=== PATIENT | female | born 1965 | race Caucasian/White ===

== ENCOUNTER 2016-10-07 11:20 | Outpatient (CLI) | payer MEDICAID | END 2016-10-07 11:21 | disposition home or self-care (01) | DX: R10.11 Right upper quadrant pain (principal) ==

== ENCOUNTER 2016-10-08 14:34 | Outpatient (CLI) | payer MEDICAID | END 2016-10-08 14:35 | disposition home or self-care (01) | DX: R10.11 Right upper quadrant pain (principal) ==

== ENCOUNTER 2016-10-22 07:51 | Outpatient (CLI) | payer MEDICAID ==
[2016-10-22] MEDS ORDERED: IOPAMIDOL-300 100 ML VIAL IVP ONE (09:38)
== END 2016-10-22 07:52 | disposition home or self-care (01) ==
DX: M79.89 Other specified soft tissue disorders (principal)

== ENCOUNTER 2016-10-22 07:53 | Outpatient (CLI) | payer MEDICAID | END 2016-10-22 07:54 | disposition home or self-care (01) | DX: R06.02 Shortness of breath (principal); M79.89 Other specified soft tissue disorders | CPT/HCPCS: 71275; 93971; Q9967 ==

== ENCOUNTER 2017-01-30 15:51 | Emergency (ER) | payer MEDICAID ==
[2017-01-30 15:57] VITALS: BP 142/99
--- NOTE | 2017-01-30 16:20 | ED Physician Documentation ---
PD HPI BACK PAIN - Stated complaint Stated Complaint: MID BACK PX - Chief complaint Chief Complaint: Back Pain - History obtained from History obtained from: Patient - History of Present Illness Timing - onset: Today Timing - duration: Hours (1) Timing - details: Abrupt onset Pain level max: 9 Pain level now: 9 Location: Mid, Lower Quality: Pain, Spasm, Similar to prior episodes Associated symptoms: Numbness (L upper thigh), Incontinent of urine (stress incontinence). 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 Also brought with her a copy of her MRI from 2013. Does have some numbness to the left upper leg. 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 - Present Medications Home Medications: Ambulatory Orders Medication Instructions Recorded Confirmed Meloxicam [Mobic] 7.5 mg PO BID PRN #20 tablet 01/30/17 Prednisone 40 mg PO DAILY #10 tablet 01/30/17 - Allergies Allergies/Adverse Reactions: Allergies Allergy/AdvReac Type Severity Reaction Status Date / Time codeine Allergy Itching Verified 05/29/16 19:47 Penicillins AdvReac Nausea Verified 05/29/16 19:47 - Social History Does the pt smoke?: No Smoking Status: Former smoker Does the pt drink ETOH?: No Does the pt have substance abuse?: No - Immunizations Immunizations are current?: Yes PD ED PE NORMAL - Vitals Vital signs reviewed: Yes - General General: Alert and oriented X 3, No acute distress - HEENT HEENT: Moist mucous membranes - Neck Neck: Supple, no meningeal sign - Cardiac Cardiac: RRR, Strong equal pulses - Respiratory Respiratory: No respiratory distress, Clear bilaterally - Abdomen Abdomen: Soft, Non tender - Back Back: No spinal TTP, Other (Paraspinal muscle spasm present T8 and T9. No midline Tenderness. No step-off or deformity.) - Derm Derm: Warm and dry, No rash - Extremities Extremities: No deformity, No tenderness to palpate, Other (normal bilateral lower extremity patellar and ankle jerk reflexes. Normal great toe extension bilaterally) - Neuro Neuro: Alert and oriented X 3, No motor deficit, Other (mild decreased sensation L upper thigh (L3 dermatome)) - Psych Psych: Normal mood, Normal affect Results - Vitals Vitals: Vital Signs - 24 hr 01/30/17 15:54 Temperature 36.3 C L Heart Rate 88 Respiratory 16 Rate Blood Pressure 142/99 H O2 Saturation 97 Oxygen O2 Source Room air PD MEDICAL DECISION MAKING - ED course Complexity details: reviewed old records, re-evaluated patient, considered differential (no cauda equina, no spinal epidural abscess, no fracture, no aortic dissection or evidence of aneursym rupture), d/w patient ED course: Patient is a 51-year-old female who presents to the emergency department with acute on chronic back pain. Appears to have new radiculopathy, will place on steroids here for this. Patient states that she does not like medications and does not want to take them at home. I discussed with her further that I think she would benefit from medications to decrease the inflammation in her spine. Her MRI from 2013 was reviewed and I recommend that she follow-up with her doctor and a spine surgeon for further evaluation. She would likely benefit from a new MRI as this was approximately 3 years ago and they did not look at her lumbar spine. She has no new numbness or tingling. No evidence of cauda equina or epidural abscess. Ambulating with a steady gait. Normal reflexes bilateral lower extremities. Patient counseled regarding signs and symptoms for which I believe and urgent re-evaluation would be necessary. Patient with good understanding of and agreement to plan and is comfortable going home at this time This document was made in part using voice recognition software. While efforts are made to proofread this document, sound alike and grammatical errors may occur. Departure - Departure Disposition: 01 Home, Self Care Clinical Impression: Radiculopathy Qualifiers: Spinal region: lumbosacral Qualified Code(s): M54.17 - Radiculopathy, lumbosacral region Sciatica Qualifiers: Laterality: left Qualified Code(s): M54.32 - Sciatica, left side Condition: Good Instructions: ED Sciatica Follow-Up: BISHOP ROOT [Primary Care Provider] - Within 1 week Prescriptions: Meloxicam [Mobic] 7.5 mg PO BID PRN #20 tablet PRN Reason: pain Prednisone 40 mg PO DAILY #10 tablet Comments: Return if you worsen. This should improve over the next 24 hours. Return if you have loss of bowel or bladder control. You should also be referred to a spine surgeon for further evaluation. You will likely need another MRI of your T and L spines ordered by your doctor. Discharge Date/Time: 01/30/17 16:51
[2017-01-30] MEDS ORDERED: DEXAMETHASONE 10 MG/ML VIAL PO STA (16:37)
[2017-01-30] MEDS ORDERED: DEXAMETHASONE 10 MG/ML VIAL ONE (16:40)
[2017-01-30] MEDS ORDERED: CHERRY SYRUP 10 ML UDC PO ONE (16:40)
== END 2017-01-30 16:51 | disposition home or self-care (01) ==
LOC: ED 15:51
DX: M54.17 Radiculopathy, lumbosacral region (principal); M54.32 Sciatica, left side; Z86.73 Personal history of transient ischemic attack (TIA), and cerebral infarction without residual deficits; Z87.891 Personal history of nicotine dependence
CPT/HCPCS: 99283; A9270

== ENCOUNTER 2020-09-03 17:34 | Emergency (ER) | payer MEDICAID ==
[2020-09-03] MEDS ORDERED: OLANZapine 10 MG VIAL IM STA (17:57)
[2020-09-03 18:06] LABS: BASOPHILS % (AUTO) 0.4 %; EOSINOPHILS # (AUTO) 0.1 10^3/uL (0.0-0.7); EOSINOPHILS % (AUTO) 2.1 %; HCT - HEMATOCRIT 39.1 % (37.0-47.0); HGB - HEMOGLOBIN 12.7 g/dL (12.0-16.0); LYMPHOCYTES # (AUTO) 3.7 10^3/uL (1.5-3.5); LYMPHOCYTES % (AUTO) 55.8 %; MEAN CORPUSCULAR HGB CONC 32.5 g/dL (32.0-36.0); MEAN CORPUSCULAR VOLUME 86.1 fL (81.0-99.0); MEAN PLATELET VOLUME 9.6 fL (7.9-10.8); MONOCYTES # (AUTO) 0.4 10^3/uL (0.0-1.0); NEUTROPHILS # (AUTO) 2.4 10^3/uL (1.5-6.6); NEUTROPHILS % (AUTO) 35.4 %; PLT - PLATELET COUNT 257 10^3/uL (130-450); RED BLOOD COUNT 4.54 10^6/uL (4.20-5.40); RED CELL DISTRIBUTION WIDTH 13.2 % (12.0-15.0); WHITE BLOOD COUNT 6.7 x10^3/uL (4.8-10.8)
--- NOTE | 2020-09-03 18:08 | ED Physician Documentation ---
PD HPI MHE - Stated complaint Stated Complaint: MHE - Chief complaint Chief Complaint: MHE - History obtained from History obtained from: Patient, Police - History of Present Illness Primary symptom: Suicidal ideation, Psychosis Timing - onset: Today Pain level max: 0 Pain level now: 0 - Additional information Additional information: Patient is a 55-year-old female who is brought in by police today. They state that she was throwing items out of her trailer and was threatening to kill herself with a knife. The police brought her here on an involuntary hold. Patient is uncooperative here and refuses to talk to any emergency department staff. 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 - Present Medications Home Medications: Ambulatory Orders Medication Instructions Recorded Confirmed Meloxicam [Mobic] 7.5 mg PO BID PRN #20 tablet 01/30/17 predniSONE [Prednisone] 40 mg PO DAILY #10 tablet 01/30/17 - Allergies Allergies/Adverse Reactions: Allergies Allergy/AdvReac Type Severity Reaction Status Date / Time codeine Allergy Itching Verified 05/29/16 19:47 Penicillins AdvReac Nausea Verified 05/29/16 19:47 - Social History Does the pt smoke?: No Smoking Status: Former smoker Does the pt drink ETOH?: No Does the pt have substance abuse?: No - Immunizations Immunizations are current?: Yes PD ED PE NORMAL - Vitals Vital signs reviewed: Yes - General General: No acute distress, Well developed/nourished, Other (alert, in no distress) - HEENT HEENT: PERRL, Moist mucous membranes - Neck Neck: Supple, no meningeal sign - Cardiac Cardiac: RRR, Strong equal pulses - Respiratory Respiratory: No respiratory distress, Clear bilaterally - Abdomen Abdomen: Soft, Non tender, Non distended - Derm Derm: Warm and dry - Extremities Extremities: No edema - Neuro Neuro: Other (alert) Results - Vitals Vitals: Vital Signs - 24 hr 09/03/20 17:40 Temperature 36.7 C Heart Rate 90 Respiratory 18 Rate Blood Pressure 150/99 H O2 Saturation 100 Oxygen O2 Source Room air - Labs Labs: Laboratory Tests 09/03/20 09/03/20 09/03/20 17:17 17:17 18:00 WBC 6.7 RBC 4.54 Hgb 12.7 Hct 39.1 MCV 86.1 MCH 28.0 MCHC 32.5 RDW 13.2 Plt Count 257 MPV 9.6 Neut # (Auto) 2.4 Lymph # (Auto) 3.7 H [place] # (Auto) 0.4 Eos # (Auto) 0.1 Baso # (Auto) 0.0 Absolute Nucleated RBC 0.00 Nucleated RBC % 0.0 Sodium Potassium Chloride Carbon Dioxide Anion Gap BUN Creatinine Estimated GFR (MDRD) Glucose Calcium Total Bilirubin AST ALT Alkaline Phosphatase Total Protein Albumin Globulin Albumin/Globulin Ratio Lipase TSH Urine Color YELLOW Urine Clarity CLEAR Urine pH 5.5 Ur Specific [place] <=1.005 Urine Protein NEGATIVE Urine Glucose (UA) NEGATIVE Urine Ketones NEGATIVE Urine Occult Blood TRACE-INTA Urine Nitrite NEGATIVE Urine Bilirubin NEGATIVE Urine Urobilinogen 0.2 (NORMAL) Ur Leukocyte Esterase NEGATIVE Ur Microscopic Review NOT INDICATED Urine Culture Comments NOT INDICATED Urine HCG, Qual NEGATIVE Nasal Adenovirus (PCR) Nasal B. parapertussis DNA (PCR) Nasal Coronavir 229E PCR Nasal Coronavir HKU1 PCR Nasal Coronavir NL63 PCR Nasal Coronavir OC43 PCR Nasal Enterovir/Rhinovir PCR Nasal Influenza B PCR Nasal Influenza A PCR Nasal Parainfluen 1 PCR Nasal Parainfluen 2 PCR Nasal Parainfluen 3 PCR Nasal Parainfluen 4 PCR Nasal RSV (PCR) Nasal B.pertussis DNA PCR Nasal C.pneumoniae (PCR) Hans[place] Human Metapneumo PCR Nasal M.pneumoniae (PCR) Nasal SARS-CoV-2 (PCR) Salicylates Urine Opiates Screen NEGATIVE Ur Oxycodone Screen NEGATIVE Urine Methadone Screen NEGATIVE Ur Propoxyphene Screen NEGATIVE Acetaminophen Ur Barbiturates Screen NEGATIVE Ur Tricyclics Screen NEGATIVE Ur Phencyclidine Scrn NEGATIVE Ur Amphetamine Screen NEGATIVE U Methamphetamines Scrn NEGATIVE U Benzodiazepines Scrn NEGATIVE Urine Cocaine Screen NEGATIVE U Cannabinoids Screen NEGATIVE Ethyl Alcohol 09/03/20 09/03/20 09/03/20 18:00 18:00 18:22 WBC RBC Hgb Hct MCV MCH MCHC RDW Plt Count MPV Neut # (Auto) Lymph # (Auto) [place] # (Auto) Eos # (Auto) Baso # (Auto) Absolute Nucleated RBC Nucleated RBC % Sodium 137 Potassium 3.7 Chloride 103 Carbon Dioxide 21 Anion Gap 13.0 BUN 17 Creatinine 0.9 Estimated GFR (MDRD) 65 L Glucose 106 H Calcium 9.1 Total Bilirubin 0.6 AST 28 ALT 16 Alkaline Phosphatase 67 Total Protein 8.1 Albumin 4.7 Globulin 3.4 Albumin/Globulin Ratio 1.4 Lipase 38 TSH 3.91 Urine Color Urine Clarity Urine pH Ur Specific [place] Urine Protein Urine Glucose (UA) Urine Ketones Urine Occult Blood Urine Nitrite Urine Bilirubin Urine Urobilinogen Ur Leukocyte Esterase Ur Microscopic Review Urine Culture Comments Urine HCG, Qual Nasal Adenovirus (PCR) NOT DETECTED Nasal B. parapertussis DNA (PCR) NOT DETECTED Nasal Coronavir 229E PCR NOT DETECTED Nasal Coronavir HKU1 PCR NOT DETECTED Nasal Coronavir NL63 PCR NOT DETECTED Nasal Coronavir OC43 PCR NOT DETECTED Nasal Enterovir/Rhinovir PCR NOT DETECTED Nasal Influenza B PCR NOT DETECTED Nasal Influenza A PCR NOT DETECTED Nasal Parainfluen 1 PCR NOT DETECTED Nasal Parainfluen 2 PCR NOT DETECTED Nasal Parainfluen 3 PCR NOT DETECTED Nasal Parainfluen 4 PCR NOT DETECTED Nasal RSV (PCR) NOT DETECTED Nasal B.pertussis DNA PCR NOT DETECTED Nasal C.pneumoniae (PCR) NOT DETECTED Hans[place] Human Metapneumo PCR NOT DETECTED Nasal M.pneumoniae (PCR) NOT DETECTED Nasal SARS-CoV-2 (PCR) NOT DETECTED Salicylates < 6.0 Urine Opiates Screen Ur Oxycodone Screen Urine Methadone Screen Ur Propoxyphene Screen Acetaminophen < 10 L Ur Barbiturates Screen Ur Tricyclics Screen Ur Phencyclidine Scrn Ur Amphetamine Screen U Methamphetamines Scrn U Benzodiazepines Scrn Urine Cocaine Screen U Cannabinoids Screen Ethyl Alcohol 220.0 PD MEDICAL DECISION MAKING - ED course Complexity details: reviewed results, re-evaluated patient, considered differential ED course: Patient brought in by police on an involuntary hold for reported psychosis and suicidal ideation. She refuses to speak to me in the emergency department. Patient's alcohol level is elevated and we will allow her to sober and be re- evaluated. If she continues to refuse to speak, she will likely need DCR evaluation and will likely need DCR evaluation either way. Patient signed out to the oncoming emergency department physician. This document was made in part using voice recognition software. While efforts are made to proofread this document, sound alike and grammatical errors may occur. Departure - Departure Clinical Impression: Suicidal ideation Alcohol intoxication Qualifiers: Complication of substance-induced condition: uncomplicated Qualified Code(s): F10.920 - Alcohol use, unspecified with intoxication, uncomplicated Psychosis Qualifiers: Psychosis type: unspecified psychosis type Qualified Code(s): F29 - Unspecified psychosis not due to a substance or known physiological condition Condition: Stable
[2020-09-03 18:15] LABS: MUDS CUTOFF CONCENTRATIONS CUTOFF CONC BELOW:
[2020-09-03 18:19] LABS: BILIRUBIN,URINE NEGATIVE (NEGATIVE); GLUCOSE, URINE (UA) NEGATIVE (NEGATIVE); KETONES,URINE (UA) NEGATIVE (NEGATIVE); LEUKOCYTE ESTERASE, URINE NEGATIVE (NEGATIVE); NITRITE,URINE NEGATIVE (NEGATIVE); OCCULT BLOOD,URINE TRACE-INTA (NEGATIVE); PH,URINE 5.5 PH (5.0-7.5); PROTEIN,URINE NEGATIVE (NEGATIVE); UROBILINOGEN,URINE 0.2 (NORMAL) E.U./dL (NORMAL)
[2020-09-03 18:21] LABS: CLARITY,URINE CLEAR (CLEAR); HCG UR QUAL NEGATIVE
[2020-09-03 18:21] LABS: ACETAMINOPHEN < 10 ug/mL (10-30); ALBUMIN 4.7 g/dL (3.2-5.5); ALBUMIN/GLOBULIN RATIO 1.4 (1.0-2.2); ALKALINE PHOSPHATASE 67 IU/L (42-121); ALT ALANINE AMINOTRANSFERASE 16 IU/L (10-60); AST ASPARTATE AMINOTRANSFERASE 28 IU/L (10-42); BILIRUBIN,TOTAL 0.6 mg/dL (0.2-1.0); BUN - BLOOD UREA NITROGEN 17 mg/dL (6-20); CALCIUM 9.1 mg/dL (8.5-10.3); CARBON DIOXIDE - CO2 21 mmol/L (21-32); CHLORIDE 103 mmol/L (101-111); CREATININE 0.9 mg/dL (0.4-1.0); GFR - MDRD 65 (>89); GLUCOSE 106 mg/dL (70-100); LIPASE 38 U/L (22-51); POTASSIUM 3.7 mmol/L (3.5-5.0); SALICYLATE < 6.0 mg/dL; SODIUM 137 mmol/L (135-145); TOTAL PROTEIN 8.1 g/dL (6.7-8.2)
[2020-09-03 18:40] LABS: AMPHETAMINE SCREEN,URINE NEGATIVE (NEGATIVE); BARBITURATE SCREEN,UR NEGATIVE (NEGATIVE); BENZODIAZEPINES SCREEN, URINE NEGATIVE (NEGATIVE); COCAINE SCREEN URINE NEGATIVE (NEGATIVE); METHADONE SCREEN, URINE NEGATIVE (NEGATIVE); METHAMPHETAMINES SCREEN, URINE NEGATIVE (NEGATIVE); OPIATE SCREEN, URINE NEGATIVE (NEGATIVE); OXYCODONE SCREEN, URINE NEGATIVE (NEGATIVE); PROPOXYPHENE SCREEN, URINE NEGATIVE (NEGATIVE); THC CANNABINOID SCREEN, URINE NEGATIVE (NEGATIVE); TRICYCLIC ANTIDEPRESSANT,URINE NEGATIVE (NEGATIVE)
[2020-09-03 19:35] LABS: B. PARAPERTUSSIS- RESP PCR PAN NOT DETECTED; B. PERTUSSIS- RESP PCR PANEL NOT DETECTED; C. PNEUMONIAE- RESP PCR PANEL NOT DETECTED; CORONAVIRUS 229E-RESP PCR NOT DETECTED; CORONAVIRUS HKU1-RESP PCR NOT DETECTED; CORONAVIRUS NL63-RESP PCR NOT DETECTED; CORONAVIRUS OC43-RESP PCR NOT DETECTED; HUMAN METAPNEUMOVIRUS NOT DETECTED; INFLUENZA A- RESP PCR PANEL NOT DETECTED; INFLUENZA B - RESP PCR PANEL NOT DETECTED; M. PNEUMONIAE- RESP PCR PANEL NOT DETECTED; PARAINFLUENZA VIRUS 1 NOT DETECTED; PARAINFLUENZA VIRUS 2 NOT DETECTED; PARAINFLUENZA VIRUS 3 NOT DETECTED; PARAINFLUENZA VIRUS 4 NOT DETECTED; RHINOVIRUS/ENTEROVIRUS NOT DETECTED; RSV- RESP PCR PANEL NOT DETECTED; SARS-CoV-2 -RESP PCR PANEL NOT DETECTED
--- NOTE | 2020-09-04 07:39 | ED Physician Documentation ---
ED Addendum - Addendum Addendum: 09/04/20 07:38 55-year-old female presented to the emergency department intoxicated last night unwilling to speak to anyone and she has slept through the night after getting some Zyprexa and she has had a second blood draw indicating her blood alcohol level is less than 55. Social work has been consulted in the case if they are unable to make adequate communication with the patient the recommendation is to call the DCR.
[2020-09-04 10:07] VITALS: BP 169/102
--- NOTE | 2020-09-04 10:26 | ED Physician Documentation ---
ED Addendum - Addendum Addendum: 09/04/20 10:19 Social work has talked with the patient and assessed her. The patient denies any suicidal ideation at this time. She denies any regular alcohol use. She states she does have history of some depression and had been feeling upset about social stresses recently. She does not remember expressing any suicidality while intoxicated last night. She denies any suicidal ideation now. She did complain of her ears being bothered. She wears hearing aids. I looked at her ears and there is little bit of ear canal irritation looks potentially yeastlike. The eardrums are good. She is otherwise awake and conversant. No tremoring or nausea. The patient will be discharged with counseling follow-up as arranged by social work with an appointment made. Disposition the patient discharged home in stable condition Diagnoses: 1. Alcohol intoxication 2. Depression 3. Otitis externa 4. Stress reaction
== END 2020-09-04 11:08 | disposition home or self-care (01) ==
LOC: EDUNIT# → ED 17:34
DX: F32.9 Major depressive disorder, single episode, unspecified (principal); R45.851 Suicidal ideations; F10.920 Alcohol use, unspecified with intoxication, uncomplicated; F43.9 Reaction to severe stress, unspecified; H60.90 Unspecified otitis externa, unspecified ear; Z97.4 Presence of external hearing-aid; Z87.891 Personal history of nicotine dependence; Z20.828 Contact with and (suspected) exposure to other viral communicable diseases
CPT/HCPCS: 0202U; 36415; 80053; 80306; 80307; 80320; 80329; 81003; 81025; 83690; 84443; 85025; 96372; 99281; 99283; 81001; 87086

== ENCOUNTER 2021-07-07 18:07 | Emergency (ER) | payer MEDICAID ==
[2021-07-07] MEDS ORDERED: ACETAMINOPHEN 325 MG TABLET PO STA (19:26)
[2021-07-07] MEDS: MELOXICAM 7.5 MG TABLET PO STA ×2 (19:29→19:33)
--- NOTE | 2021-07-07 19:39 | ED Physician Documentation ---
PD HPI UPPER EXT INJURY - Stated complaint Stated Complaint: L ARM INJURY - Chief complaint Chief Complaint: Trauma Ext - History obtained from History obtained from: Patient - History of Present Illness Location: Left, Elbow Type of injury: Fall Where injury occurred: Street Timing - details: Abrupt onset Pain level max: 10 Pain level now: 10 Improved by: Rest Worsened by: Moving, Palpating Associated symptoms: Swelling - Additonal information Additional information: 56-year-old female presents to the emergency department stating that she tripped fell landed on her left elbow and is now having pain. Worse with movement, better with rest. She states that she has no head, neck, back pain. Did not strike her head. No loss of consciousness. 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 - Present Medications Home Medications: Ambulatory Orders Medication Instructions Recorded Confirmed Meloxicam [Mobic] 7.5 mg PO BID PRN #20 tablet 01/30/17 predniSONE [Prednisone] 40 mg PO DAILY #10 tablet 01/30/17 Clotrimazole 3 drops EACHEAR TID 5 Days #10 ml 09/04/20 Meloxicam [Mobic] 15 mg PO DAILY PRN #20 tablet 09/04/20 Ondansetron Odt [Zofran] 4 mg TL Q6H PRN #10 tablet 07/07/21 Oxycodone HCl/Acetaminophen 1 - 2 each PO Q6H PRN #20 tablet 07/07/21 [Percocet 5-325 mg Tablet] - Allergies Allergies/Adverse Reactions: Allergies Allergy/AdvReac Type Severity Reaction Status Date / Time codeine Allergy Itching Verified 07/07/21 18:11 Penicillins AdvReac Nausea Verified 07/07/21 18:11 - Social History Does the pt smoke?: No Smoking Status: Never smoker Does the pt drink ETOH?: No Does the pt have substance abuse?: No - Immunizations Immunizations are current?: Yes PD ED PE NORMAL - Vitals Vital signs reviewed: Yes - General General: Alert and oriented X 3, No acute distress - HEENT HEENT: Atraumatic, PERRL, Moist mucous membranes - Neck Neck: Supple, no meningeal sign, No bony TTP - Cardiac Cardiac: RRR, Strong equal pulses - Respiratory Respiratory: No respiratory distress, Clear bilaterally - Abdomen Abdomen: Soft, Non tender, Non distended - Back Back: No spinal TTP - Derm Derm: Warm and dry - Extremities Extremities: Other (Tender palpation over the left elbow. Swelling and deformity noted. Neurovascularly intact. Brisk cap refill of the hand. Normal sensation over the hand and wrist. No tenderness over the shoulder or clavicle.) - Neuro Neuro: Alert and oriented X 3 - Psych Psych: Normal mood, Normal affect Results - Vitals Vitals: Vital Signs - 24 hr 07/07/21 07/07/21 07/07/21 18:11 21:14 21:31 Temperature 36.5 C Heart Rate 92 87 82 Respiratory 16 13 15 Rate Blood Pressure 140/98 H 180/106 H 180/105 H O2 Saturation 98 97 96 07/07/21 07/07/21 07/07/21 21:35 21:41 22:05 Temperature Heart Rate 79 86 87 Respiratory 19 12 16 Rate Blood Pressure 131/87 H 142/99 H O2 Saturation 92 97 07/07/21 23:12 Temperature 36.5 C Heart Rate 78 Respiratory 17 Rate Blood Pressure 148/98 H O2 Saturation 96 Oxygen O2 Source Room air - Rads (name of study) Left elbow x-ray Radiology: Final report received, EMP read contemporaneously, See rad report (Acute comminuted and displaced proximal olecranon fracture with dorsal elbow dislocation as above.) Left elbow x-ray postreduction Radiology: Final report received, EMP read contemporaneously, See rad report (1. Reduction of elbow dislocation with near anatomic alignment. 2. Comminuted fracture of the olecranon process of proximal ulna.) CT left elbow Radiology: See rad report Procedures - Splint (location) L arm Splint applied by: Physician, Tech Type of splint: Fiberglass, Long arm, Posterior Other: Patient tolerated well, No complications, Neurovascular intact, Good alignment, Sling provided - Reduction Body part reduced: Left, Elbow Fracture or dislocation: Fracture dislocation Anesthesia: Other (sedation) Reduction aftercare: NV intact, Xray confirms reduction, Alignment improved, Splint applied, Sling, Patient tolerated well - Procedural sedation Sedation prep: Informed consent, Time out completed, 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), PE performed, ASA 2 - mild disease, IV O2 monitor, ET CO2 monitor, RT present Sedation Medications: propofol Mallampati classification: II Patient status during sedation: Responds to tactile, Vitals remained stable, Maintained airway, Recovered uneventfully Sedation recovery: Recovered uneventfully, Slow recovery, Back to baseline Time in sedation (Minutes): 30 PD MEDICAL DECISION MAKING - ED course Complexity details: reviewed results, re-evaluated patient, considered differential, d/w patient, 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 This was reduced under propofol sedation. Tolerated well. Discussed the case with Dr. Clement who recommends a CT scan for outpatient purposes. This was ordered. The patient initially declined any pain medication other than Tylenol and she stated she could not take any pain medication. Offered hydrocodone, oxycodone, Dilaudid, morphine, Toradol. Patient stated she could not take any of these. She initially took a dose of Dilaudid prior to sedation. We will trial her on oxycodone she states that it made her itch in the past but had no evidence of anaphylaxis or rash. We will prescribe Zofran for any nausea and we will have her follow-up with orthopedics for further care. Neurovascularly intact after reduction. Patient counseled regarding signs and symptoms for which I believe and urgent re-evaluation would be necessary. Patient with good understanding of and agreement to plan and is comfortable going home at this time This document was made in part using voice recognition software. While efforts are made to proofread this document, sound alike and grammatical errors may occur. Departure - Departure Disposition: 01 Home, Self Care Clinical Impression: Closed olecranon fracture Qualifiers: Encounter type: initial encounter Laterality: left Qualified Code(s): S52.022A - Displaced fracture of olecranon process without intraarticular extension of left ulna, initial encounter for closed fracture Elbow dislocation Qualifiers: Encounter type: initial encounter Laterality: left Qualified Code(s): S53.105A - Unspecified dislocation of left ulnohumeral joint, initial encounter Condition: Good Instructions: ED Fx Upper Ext Follow-Up: BISHOP ROOT [Primary Care Provider] - Clemente Clement MD [Provider Admit Priv/Credential] - Within 1 week Prescriptions: Oxycodone HCl/Acetaminophen [Percocet 5-325 mg Tablet] 1 - 2 each PO Q6H PRN #20 tablet PRN Reason: pain Ondansetron Odt [Zofran] 4 mg TL Q6H PRN #10 tablet PRN Reason: Nausea / Vomiting Comments: You have a fracture of your ulna today. This is in a part of the bone called the olecranon. It is important that you follow-up with orthopedics for further care. This injury will likely need surgery. You should stay in the splint until seen by orthopedics. I am prescribing a short course of narcotic pain medication for you. These are potentially dangerous and addictive medications that should be used carefully. These medications may constipate you. Take an [id number] stool softener (docusate) twice daily with plenty of water while taking these medications. If you go 24 hours without a bowel movement, take [id number] miralax, per package instructions. Do not drink or drive while taking these medications. If you received narcotic or sedating medications while in the emergency department, do not drive for 24 hours. Store this medication in a safe, secure place and out of reach of children. It is a violation of federal law to give or sell this medication to another person or to use in a manner other than prescribed. The ED will not refill narcotic prescriptions, including prescriptions lost or stolen. To dispose of unwanted medications: 1. [facility] at [address] in [place] has a medication drop box. They accept prescription medications (in pill form) Wednesday through Wednesday 9:00 a.m. to 5:00 p.m. 2. The [facility] [place] [employer] accepts prescription medications (in pill form only) for disposal year round. Call for more information. 3. Contact the [facility] for the next [facility] sponsored prescription drug collection event. , [phone], or [phone]; Discharge Date/Time: 07/07/21 23:12
--- NOTE | 2021-07-07 20:49 | XRAY Report ---
PROCEDURE: Elbow 3 View LT INDICATIONS: Trauma TECHNIQUE: 3 views of the elbow were acquired. COMPARISON: None FINDINGS: Bones: Acute comminuted fracture involving proximal olecranon with dorsal dislocation at elbow joint and superior displacement of the proximal olecranon fragment. No suspicious bony lesions. Soft tissues: Moderate to large joint effusion is seen. Soft tissue swelling surrounding proximal ole cranon is noted. No suspicious soft tissue calcifications. IMPRESSION: Acute comminuted and displaced proximal olecranon fracture with dorsal elbow dislocation as above. Reviewed by: Damian Martino MD on 07/07/2021 8:48 PM PDT Approved by: Damian Martino MD on 07/07/2021 8:48 PM PDT Station ID: [id number]
[2021-07-07] MEDS ORDERED: HYDROmorphone 1 MG/ML CARPUJECT IVP STA (21:05)
[2021-07-07] MEDS ORDERED: SODIUM CHLORIDE 0.9% 1,000 ML IV STA (21:14)
[2021-07-07] MEDS ORDERED: PROPOFOL 200 MG/20 ML VIAL IVP STA (21:14)
[2021-07-07] MEDS ORDERED: oxyCODONE/ACET 5/325 Prepack 4 PO STA (22:02)
--- NOTE | 2021-07-07 22:29 | XRAY Report ---
PROCEDURE: Elbow 2 View LT INDICATIONS: post reduction TECHNIQUE: 2 views of the elbow were acquired. COMPARISON: X-ray left elbow 3 view, 07/07/2021. FINDINGS: Bones: There is a comminuted fracture involving the base of the olecranon process of the proximal uln a. Dislocation of elbow is reduced with near anatomic alignment. Soft tissues: There is elbow joint effusion. No suspicious soft tissue calcifications. IMPRESSION: 1. Reduction of elbow dislocation with near anatomic alignment. 2. Comminuted fracture of the olecranon process of proximal ulna. Reviewed by: Gissell Benitez MD on 07/07/2021 10:28 PM PDT Approved by: Gissell Benitez MD on 07/07/2021 10:28 PM PDT Station ID: [id number]
[2021-07-07 23:14] VITALS: BP 148/98
--- NOTE | 2021-07-08 02:08 | CT Report ---
PROCEDURE: UPPER EXTREMITY WO - LT INDICATIONS: L elbow fracture dislocation s/p reduction TECHNIQUE: Noncontrast 3 mm axial sections acquired of the left elbow, with coronal and sagittal reformats. COMPARISON: X-ray of helpful 3 view, 07/07/2021 (initial). X-ray of the elbow 2 view, 07/07/2021 (po st reduction). FINDINGS: Image quality: Excellent. Bones: There is a comminuted fracture of the proximal ulna involving both the olecranon and coronoid process. There is disruption of the ulna-humeral trochlear articulation with the ulna displaced late rally and proximally. There is a nondisplaced fracture of the radial head. There is dislocation of the radial head from its articulation with the capitellum. There is also disruption of the proximal radioulnar articulation w ith the radial head associated from the radial notch of ulna. The radial head is displaced laterally and proximally, against the lateral humeral epicondyle. There is no displaced fracture in the distal humerus (distal clear, capitulum, medial and lateral epi condyles). Soft tissues: There is marked soft tissue edema. IMPRESSION: 1. Complex fracture and dislocation of the elbow as described. Reviewed by: Gissell Benitez MD on 07/08/2021 2:07 AM PDT Approved by: Gissell Benitez MD on 07/08/2021 2:07 AM PDT Station ID: [id number]
== END 2021-07-07 23:12 | disposition home or self-care (01) ==
LOC: ED 18:07
DX: S52.022A Displaced fracture of olecranon process without intraarticular extension of left ulna, initial encounter for closed fracture (principal); S53.105A Unspecified dislocation of left ulnohumeral joint, initial encounter; W01.0XXA Fall on same level from slipping, tripping and stumbling without subsequent striking against object, initial encounter; Y92.410 Unspecified street and highway as the place of occurrence of the external cause
CPT/HCPCS: 24605; 73070; 73080; 73200; 96374; 99152; 99153; 99284; 99285; A9270; J1170; 94770

== ENCOUNTER 2021-07-29 17:24 | Emergency (ER) | payer MEDICAID ==
[2021-07-29 17:33] VITALS: BP 194/115
[2021-07-29] MEDS ORDERED: oxyCODONE/ACET 5/325 Prepack 4 PO STA (17:44)
--- NOTE | 2021-07-29 17:46 | ED Physician Documentation ---
PD HPI UPPER EXT INJURY - Stated complaint Stated Complaint: LT ARM INJURY - Chief complaint Chief Complaint: Ext Problem - History obtained from History obtained from: Patient - Additonal information Additional information: 56-year-old woman who sustained a displaced olecranon fracture on the first of this month. It sounds like she was lost to follow-up or there was some sort of delay to follow-up because she has not seen orthopedics yet and still has the original splint on. She comes in complaining of increased pain and swelling in the left upper extremity. No fevers. She does have an appointment to be seen in 4 days with Ortho. 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 - Present Medications Home Medications: Ambulatory Orders Medication Instructions Recorded Confirmed Meloxicam [Mobic] 7.5 mg PO BID PRN #20 tablet 01/30/17 predniSONE [Prednisone] 40 mg PO DAILY #10 tablet 01/30/17 Clotrimazole 3 drops EACHEAR TID 5 Days #10 ml 09/04/20 Meloxicam [Mobic] 15 mg PO DAILY PRN #20 tablet 09/04/20 Ondansetron Odt [Zofran] 4 mg TL Q6H PRN #10 tablet 07/07/21 Oxycodone HCl/Acetaminophen 1 - 2 each PO Q6H PRN #20 tablet 07/07/21 [Percocet 5-325 mg Tablet] Oxycodone HCl/Acetaminophen 1 - 2 each PO Q6H PRN #10 tablet 07/29/21 [Percocet 5-325 mg Tablet] - Allergies Allergies/Adverse Reactions: Allergies Allergy/AdvReac Type Severity Reaction Status Date / Time codeine Allergy Itching Verified 07/29/21 17:28 Penicillins AdvReac Nausea Verified 07/29/21 17:28 - Social History Does the pt smoke?: No Smoking Status: Never smoker Does the pt drink ETOH?: No Does the pt have substance abuse?: No - Immunizations Immunizations are current?: Yes PD ED PE NORMAL - Vitals Vital signs reviewed: Yes - General General: Alert and oriented X 3, No acute distress - Extremities Extremities: Other (She has a posterior splint on the left upper extremity. The left hand is edematous but seemingly with good range of motion.) - Neuro Neuro: Alert and oriented X 3, Normal speech Results - Vitals Vitals: Vital Signs - 24 hr 07/29/21 17:28 Temperature 36.8 C Heart Rate 99 Respiratory 18 Rate Blood Pressure 194/115 H O2 Saturation 95 Oxygen O2 Source Room air PD MEDICAL DECISION MAKING - ED course ED course: 56-year-old woman who is still wearing her original splints from 3 weeks ago having been delayed to orthopedic follow-up now complains of pain and swelling. Requests a refill of her pain medication. I recommended a full evaluation with splint removal which she refused. She felt like it would be too painful. We talked about this, and I discussed with her that some diagnoses I could miss such as a sore under the splint, deep vein thrombosis, or other emergency cond ition. She understands this but continues to refuse removal of her splint and prefers to follow-up with Ortho in a few days as scheduled. Departure - Departure Disposition: 01 Home, Self Care Clinical Impression: Closed olecranon fracture Qualifiers: Encounter type: initial encounter Laterality: left Qualified Code(s): S52.022A - Displaced fracture of olecranon process without intraarticular extension of left ulna, initial encounter for closed fracture Condition: Good Record reviewed to determine appropriate education?: Yes Instructions: ED Fx Upper Ext Prescriptions: Oxycodone HCl/Acetaminophen [Percocet 5-325 mg Tablet] 1 - 2 each PO Q6H PRN #10 tablet PRN Reason: pain Comments: As discussed, I recommend removal of the splint for a full evaluation of your left arm you have refused this. I am refilling your pain medication and you should follow-up with orthopedics as scheduled on Wednesday. Return if worsening or if you decide you would like an appropriate evaluation. Prescription sent electronically to [facility] pharmacy at the corner of [facility] [address] and [address] in [place].
== END 2021-07-29 18:32 | disposition home or self-care (01) ==
LOC: ED 17:24
DX: S52.022A Displaced fracture of olecranon process without intraarticular extension of left ulna, initial encounter for closed fracture (principal); X58.XXXA Exposure to other specified factors, initial encounter
CPT/HCPCS: 99282; 99283

== ENCOUNTER 2021-10-27 12:28 | Emergency (ER) | payer MEDICAID ==
--- NOTE | 2021-10-27 13:10 | ED Physician Documentation ---
History of Present Illness - Stated complaint Stated Complaint: BANDAGE CHANGE - Chief complaint Chief Complaint: Ext Problem - Additonal information Additional information: 56-year-old female comes to the emergency department requesting reevaluation of her left elbow pain. Unfortunately she sustained a fracture and dislocation 07/07/2021. She had the fracture reduced in the ER as well as a CT scan completed for outpatient follow-up purposes. She was seen again in this emergency department 07/29/2021. At that time she was being seen for pain in the left arm but she declined to have the splint removed as she reported to the provider she was going to be seeing orthopedics in a few days. Patient reports to me that she got the run around and was never able to see orthopedics and the splint has remained in place. Today she presents with persistent pain in the left arm and a contracted left hand. She is requesting today that we remove the splint. 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 - Present Medications Home Medications: Ambulatory Orders Medication Instructions Recorded Confirmed Meloxicam [Mobic] 7.5 mg PO BID PRN #20 tablet 01/30/17 predniSONE [Prednisone] 40 mg PO DAILY #10 tablet 01/30/17 Clotrimazole 3 drops EACHEAR TID 5 Days #10 ml 09/04/20 Meloxicam [Mobic] 15 mg PO DAILY PRN #20 tablet 09/04/20 Ondansetron Odt [Zofran] 4 mg TL Q6H PRN #10 tablet 07/07/21 Oxycodone HCl/Acetaminophen 1 - 2 each PO Q6H PRN #20 tablet 07/07/21 [Percocet 5-325 mg Tablet] Oxycodone HCl/Acetaminophen 1 - 2 each PO Q6H PRN #10 tablet 07/29/21 [Percocet 5-325 mg Tablet] - Allergies Allergies/Adverse Reactions: Allergies Allergy/AdvReac Type Severity Reaction Status Date / Time codeine Allergy Itching Verified 10/27/21 12:41 Penicillins AdvReac Nausea Verified 10/27/21 12:41 - Social History Does the pt smoke?: No Smoking Status: Never smoker Does the pt drink ETOH?: No Does the pt have substance abuse?: No - Immunizations Immunizations are current?: Yes - POLST Patient has POLST: No PD ED PE EXPANDED - General General: Alert, No acute distress, Well developed/nourished - Extremities Extremities: Left arm (Left arm noted to have the original long-arm posterior splint in place. Fingers are held in contraction. Splint is removed left arm is generally swollen though no obvious sores or lesions. Patient is unable to pronate or supinate the elbow. Unable to extend her fingers which are retracted.), Other (2+ radial; 1+ ulnar pulse) Results - Vitals Vitals: Vital Signs - 24 hr 10/27/21 10/27/21 12:41 14:46 Temperature 36.5 C Heart Rate 80 68 Respiratory 16 18 Rate Blood Pressure 143/94 H 175/98 H O2 Saturation 97 96 Oxygen O2 Source Room air - Rads (name of study) left elbow Radiology: Final report received (Fracture lucencies persist within the olecranon and proximal ulna with mild appearance of partial interval healing) US DVT left arm Radiology: Final report received (No evidence of deep vein thrombosis left upper extremity) PD MEDICAL DECISION MAKING - ED course Complexity details: reviewed results, re-evaluated patient, considered differential, d/w patient ED course: 56-year-old female presents emergency department with persistent left arm pain. She unfortunately sustained a displaced left elbow fracture on 07 July for which she was splinted. She failed to follow-up with orthopedic and presents to the ER today with the original splint in place. On presentation her arm is nearly frozen at the shoulder and she is unable to pronate or supinate the hand at the elbow. She is also unable to extend the elbow. Limited movement of the wrist. Her fingers are held in contraction. I suspected that she likely has sustained permanent neuromuscular damage as a result of the prolonged splint application. Her arm is generally swollen but not erythematous and there are no lesions. Ultrasound did not reveal an obvious DVT. X-ray does suggest a persistence of the fracture. Given the patient's likely inability to properly follow-up her arm was not resplinted she was given an arm sling. I have referred her to orthopedics for follow-up but did discuss that she likely has permanent neuromuscular Damage. Emergent return precautions were discussed for increased arm swelling, pain fevers or redness. Departure - Departure Disposition: 01 Home, Self Care Clinical Impression: Left arm swelling, Contracture, left hand Closed fracture of left elbow Qualifiers: Encounter type: initial encounter Qualified Code(s): S42.402A - Unspecified fracture of lower end of left humerus, initial encounter for closed fracture Condition: Stable Record reviewed to determine appropriate education?: Yes Follow-Up: Clemente Clement MD [Provider Admit Priv/Credential] - Comments: Umm you were seen today for pain in your left arm. Unfortunately your arm splint has been in place since it was put on in early July. The x-ray of your elbow shows that the fracture has not fully healed. We did do an ultrasound to rule out a blood clot in the arm and there is no blood clot. Unfortunately the pain and limited movement of the elbow and hand and wrist are likely chronic or permanent due to compression of the muscles and nerves. This can improve with some physical therapy but you will need to be seen by [facility] first. Please call Dr. Clement's office to arrange follow-up as soon as possible. You can continue to wear the sling for comfort
[2021-10-27] MEDS ORDERED: HYDROmorphone 1 MG/ML CARPUJECT IM STA ×2 (13:45→14:19)
--- NOTE | 2021-10-27 14:17 | XRAY Report ---
PROCEDURE: Elbow 3 View LT INDICATIONS: fx > 2 months ago; splint remained in place TECHNIQUE: 3 views of the elbow were acquired. COMPARISON: CT upper extremity 07/07/2021, x-ray elbow 07/07/2021. FINDINGS: Bones: As identified on prior exam, there is a complex fracture with dislocation of the olecranon as well as proximal ulna. Patient positioning remains suboptimal. There is relatively stable alignment a lthough positioning is limited for evaluation. No suspicious bony lesions. Fracture lucencies persis t although areas of interval healing are noted. Soft tissues: No elbow joint effusion. No suspicious soft tissue calcifications. IMPRESSION: Suboptimal patient positioning for evaluation of alignment. However, it remains relatively stable. Fracture lucencies persist within the olecranon and proximal ulna with mild appearance of partial int erval healing. Reviewed by: Ligia Clay MD on 10/27/2021 2:15 PM PST Approved by: Ligia Clay MD on 10/27/2021 2:15 PM PST Station ID: [id number]
[2021-10-27] MEDS ORDERED: HYDROmorphone 1 MG/ML CARPUJECT IVP STA (14:19)
[2021-10-27 14:53] VITALS: BP 175/98
--- NOTE | 2021-10-27 15:00 | Ultrasound Report ---
PROCEDURE: Duplex Ext Veins Left INDICATIONS: eval for DVT; splint in place for > 2 months TECHNIQUE: Real-time imaging, as well as color and pulse Doppler interrogation, were performed of the lower extr emity deep veins from the inguinal ligament to the popliteal fossa. COMPARISON: None. FINDINGS: The deep veins are normally compressible, and free of intraluminal thrombus. Color and pu lse Doppler demonstrate normal phasic intraluminal flow. There is normal augmentation response to di stal compression maneuver. The study is limited by patient body habitus and immobility IMPRESSION: No evidence of deep venous thrombosis, left upper extremity Reviewed by: Parth Colon MD on 10/27/2021 1:58 PM [facility] Approved by: Parth Colon MD on 10/27/2021 1:58 PM [facility] Station ID: [id number]
== END 2021-10-27 16:18 | disposition home or self-care (01) ==
LOC: ED 12:28
DX: R60.0 Localized edema (principal); M24.542 Contracture, left hand; S42.402D Unspecified fracture of lower end of left humerus, subsequent encounter for fracture with routine healing; X58.XXXD Exposure to other specified factors, subsequent encounter
CPT/HCPCS: 73080; 93971; 96372; 99283; 99284; J1170

== ENCOUNTER 2021-11-11 08:00 | Outpatient (CLI) | payer MEDICAID ==
--- NOTE | 2021-11-11 16:22 | XRAY Report ---
PROCEDURE: Elbow 3 View LT INDICATIONS: Elbow fracture TECHNIQUE: 4 views of the elbow were acquired. COMPARISON: 10/27/2021 elbow radiographs FINDINGS: No significant change in appearance of elbow fracture. No evidence of significant interval healing. IMPRESSION: Unchanged appearance of elbow fracture which is angulated and displaced. No callus formation is appre ciated. Reviewed by: Alexx Little MD on 11/11/2021 4:21 PM PST Approved by: Alexx Little MD on 11/11/2021 4:21 PM PST Station ID: [id number]
--- NOTE | 2021-11-11 16:28 | XRAY Report ---
PROCEDURE: Shoulder 2 View LT INDICATIONS: SHOULDER PAIN TECHNIQUE: 2 views of the shoulder were acquired. COMPARISON: None. FINDINGS: Bones: No fractures or dislocations. No suspicious bony lesions. Visualized ribs appear intact. Soft tissues: No suspicious soft tissue calcifications. IMPRESSION: No acute fracture. No osseous lesion. If symptoms and/or clinical suspicion for patholog y continue, further assessment with repeat plain films, or advanced imaging (e.g., CT, MRI, or bone s can) is recommended for further assessment. Reviewed by: Juan J Brower MD on 11/11/2021 4:27 PM PST Approved by: Juan J Brower MD on 11/11/2021 4:27 PM PST Station ID: [id number]
--- NOTE | 2021-11-11 16:30 | XRAY Report ---
PROCEDURE: Wrist 2 View LT INDICATIONS: WRIST PAIN TECHNIQUE: 2 views of the wrist were acquired. COMPARISON: None FINDINGS: Bones: No fractures or dislocations. No suspicious bony lesions. Joint space narrowing and periart icular osteophyte formation at the radiocarpal, scaphotrapezial, and first metacarpal joints. Healed fracture of the proximal second metacarpal. Diffuse osteopenia. Scaphoid view: Not requested Soft tissues: No suspicious soft tissue calcifications. IMPRESSION: 1. Osteopenia. 2. Osteoarthritis. 3. No acute fracture. No osseous lesion. If symptoms and/or clinical suspicion for pathology continue , further assessment with repeat plain films, or advanced imaging (e.g., CT, MRI, or bone scan) is re commended for further assessment. Reviewed by: Juan J Brower MD on 11/11/2021 4:28 PM PST Approved by: Juan J Brower MD on 11/11/2021 4:28 PM PST Station ID: [id number]
== END 2021-11-11 23:59 ==
LOC: DI.WOS 08:00
PROVIDERS: ATTEND Orthopaedic Surgery
DX: S42.402A Unspecified fracture of lower end of left humerus, initial encounter for closed fracture (principal); M85.88 Other specified disorders of bone density and structure, other site; M19.032 Primary osteoarthritis, left wrist; M25.512 Pain in left shoulder

== ENCOUNTER 2021-12-01 14:58 | Emergency (ER) | payer MEDICAID ==
[2021-12-01 15:09] VITALS: BP 160/114
[2021-12-01] MEDS: NAPROXEN 250 MG TABLET PO STA ×2 (15:26→15:29)
--- NOTE | 2021-12-01 15:36 | ED Physician Documentation ---
PD HPI UPPER EXT INJURY - Stated complaint Stated Complaint: WOUND CHECK, WOUND PX - Chief complaint Chief Complaint: Ext Problem - History obtained from History obtained from: Patient - Additonal information Additional information: 56-year-old woman suffered a fracture dislocation of the left elbow in early July. She was splinted and then failed to follow-up and missed appointments with orthopedics. She was finally seen by orthopedics and is being referred [facility] as she will need probably a complicated revision of her elbow and probably has nerve damage in the left upper extremity and potentially a frozen shoulder. She presents today requesting pain medication. 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 - Present Medications Home Medications: Ambulatory Orders Medication Instructions Recorded Confirmed Meloxicam [Mobic] 7.5 mg PO BID PRN #20 tablet 01/30/17 predniSONE [Prednisone] 40 mg PO DAILY #10 tablet 01/30/17 Clotrimazole 3 drops EACHEAR TID 5 Days #10 ml 09/04/20 Meloxicam [Mobic] 15 mg PO DAILY PRN #20 tablet 09/04/20 Ondansetron Odt [Zofran] 4 mg TL Q6H PRN #10 tablet 07/07/21 Oxycodone HCl/Acetaminophen 1 - 2 each PO Q6H PRN #20 tablet 07/07/21 [Percocet 5-325 mg Tablet] Oxycodone HCl/Acetaminophen 1 - 2 each PO Q6H PRN #10 tablet 07/29/21 [Percocet 5-325 mg Tablet] - Allergies Allergies/Adverse Reactions: Allergies Allergy/AdvReac Type Severity Reaction Status Date / Time codeine Allergy Itching Verified 12/01/21 15:08 Penicillins AdvReac Nausea Verified 12/01/21 15:08 - Social History Does the pt smoke?: No Smoking Status: Never smoker Does the pt drink ETOH?: No Does the pt have substance abuse?: No - Immunizations Immunizations are current?: Yes - POLST Patient has POLST: No PD ED PE NORMAL - Vitals Vital signs reviewed: Yes - General General: Alert and oriented X 3, No acute distress - Extremities Extremities: Other (She has a contractured elbow and wrist and fingers and basically a frozen shoulder. She refuses any examination of the left upper extremity.) - Neuro Neuro: Alert and oriented X 3, Normal speech Results - Vitals Vitals: Vital Signs - 24 hr 12/01/21 15:02 Temperature 36.1 C L Heart Rate 110 H Respiratory 16 Rate Blood Pressure 160/114 H O2 Saturation 96 Oxygen O2 Source Room air PD MEDICAL DECISION MAKING - ED course ED course: 56-year-old woman presents with pain to the left upper extremity due to fracture dislocation where she was lost to follow-up. She refuses examination of the left upper extremity. I discussed the case by phone with Dr. Clement who is in the process of referring her to the [facility]. I asked her what her goals of care are today since she clearly does not have any emergency and mostly she wants pain medication. I offered her naproxen which she refused. She wants an opiate and I discussed with her that at this point I did not think that was appropriate. Departure - Departure Disposition: 01 Home, Self Care Clinical Impression: Pain in extremity Qualifiers: Extremity pain location: upper extremity Laterality: left Qualified Code(s): M79.602 - Pain in left arm Condition: Good Record reviewed to determine appropriate education?: Yes Instructions: ED Chronic Pain Management Comments: As discussed, now that the pain is chronic the emergency department cannot prescribe opiate narcotics for this. I have offered a prescription for naproxen which you have refused. I recommend you complete the process of following up at the [facility] as you likely will need further work done on your arm.
== END 2021-12-01 15:42 | disposition home or self-care (01) ==
LOC: ED 14:58
DX: S53.105A Unspecified dislocation of left ulnohumeral joint, initial encounter (principal); X58.XXXA Exposure to other specified factors, initial encounter
CPT/HCPCS: 99281; 99282

== ENCOUNTER 2022-08-10 22:12 | Outpatient (CLI) | payer MEDICAID | END 2022-08-10 22:13 | disposition critical access hospital (66) | LOC: EMS 22:12 | DX: S09.93XA Unspecified injury of face, initial encounter (principal); W19.XXXA Unspecified fall, initial encounter; Y92.029 Unspecified place in mobile home as the place of occurrence of the external cause; Z72.89 Other problems related to lifestyle | CPT/HCPCS: A0425; A0429; A0999 ==

== ENCOUNTER 2022-08-10 22:16 | Emergency (ER) | payer MEDICAID ==
--- NOTE | 2022-08-10 23:40 | CT Report ---
PROCEDURE: HEAD WO INDICATIONS: fall/head inj TECHNIQUE: Noncontrast 4.5 mm thick angled axial sections acquired from the foramen magnum to the vertex. For r adiation dose reduction, the following was used: automated exposure control, adjustment of mA and/or kV according to patient size. COMPARISON: None. FINDINGS: Image quality: Diagnostic. CSF spaces: Basal cisterns are patent. No extra-axial fluid collections. Ventricles are normal in size and shape. Brain: No intracranial hemorrhage, mass, or mass effect. Haskins-white matter interface appears preser irma. Skull and face: Calvarium and visualized facial bones appear intact. The globes also appear intact. There is right facial soft tissue swelling lateral to the orbit and maxilla with a subcutaneous brian enzo collection superficial to the zygomatic arch. Sinuses: Visualized sinuses and mastoids are clear. IMPRESSION: 1. No acute intracranial abnormality. 2. Right facial soft tissue swelling with an associated subcutaneous cutaneous hematoma collection. 3. No fractures of the visualized facial bones or calvarium. Reviewed by: Quoc Jamison MD on 08/10/2022 11:39 PM PST Approved by: Quoc Jamison MD on 08/10/2022 11:39 PM PST Station ID: [id number]
--- NOTE | 2022-08-11 00:09 | ED Physician Documentation ---
PD HPI HEAD INJURY - Stated complaint Stated Complaint: GLF/HEAD INJ/ETOH - Chief complaint Chief Complaint: Laceration - History obtained from History obtained from: Patient, EMS - Additional information Additional information: The patient is brought to the emergency department by EMS for chief complaint of fall with head injury. The patient was doing some drinking tonight, as she often does, and tripped and fell, hitting her head on the ground. She sustained a small lack to her right forehead. She did not lose consciousness, and is not on any anticoagulants. She does not hurt in any other way. Patient denies neck pain, chest pain, or abdominal pain. No extremity pain. Review of Systems Ten Systems: 10 systems reviewed and negative Constitutional: reports: Reviewed and negative Eyes: reports: Reviewed and negative Ears: reports: Reviewed and negative Nose: reports: Reviewed and negative Throat: reports: Reviewed and negative Cardiac: reports: Reviewed and negative Respiratory: reports: Reviewed and negative GI: reports: Reviewed and negative : reports: Reviewed and negative Skin: reports: Laceration (s) Musculoskeletal: reports: Reviewed and negative Neurologic: reports: Head injury Psychiatric: reports: Reviewed and negative Endocrine: reports: Reviewed and negative Immunocompromised: reports: Reviewed and negative PD PAST MEDICAL HISTORY - Past Medical History Past Medical History: Yes Cardiovascular: None Respiratory: None Neuro: None Endocrine/Autoimmune: None GI: None 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 - Present Medications Home Medications: Ambulatory Orders Medication Instructions Recorded Confirmed Meloxicam [Mobic] 7.5 mg PO BID PRN #20 tablet 01/30/17 predniSONE [Prednisone] 40 mg PO DAILY #10 tablet 01/30/17 Clotrimazole 3 drops EACHEAR TID 5 Days #10 ml 09/04/20 Meloxicam [Mobic] 15 mg PO DAILY PRN #20 tablet 09/04/20 Ondansetron Odt [Zofran] 4 mg TL Q6H PRN #10 tablet 07/07/21 Oxycodone HCl/Acetaminophen 1 - 2 each PO Q6H PRN #20 tablet 07/07/21 [Percocet 5-325 mg Tablet] Oxycodone HCl/Acetaminophen 1 - 2 each PO Q6H PRN #10 tablet 07/29/21 [Percocet 5-325 mg Tablet] traMADol [Ultram] 50 - 100 mg PO Q4-6H PRN #12 tablet 03/18/22 - Allergies Allergies/Adverse Reactions: Allergies Allergy/AdvReac Type Severity Reaction Status Date / Time codeine Allergy Itching Verified 08/10/22 22:28 Penicillins AdvReac Nausea Verified 08/10/22 22:28 - Social History Does the pt smoke?: No Smoking Status: Never smoker Does the pt drink ETOH?: No Does the pt have substance abuse?: No - Immunizations Immunizations are current?: No Immunizations: TDAP >10years/unknown - POLST Patient has POLST: No PD ED PE NORMAL - Vitals Vital signs reviewed: Yes - General General: Alert and oriented X 3, No acute distress, Well developed/nourished, Other (The patient is not clinically intoxicated.) - HEENT HEENT: PERRL, EOMI, Moist mucous membranes, Other (1 cm horizontal laceration to right forehead, bleeding controlled. No foreign body. No skull depression. Minimal soft tissue edema. 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, No motor deficit, No sensory deficit, Normal speech - Psych Psych: Normal mood, Normal affect Results - Vitals Vitals: Oxygen O2 Source Room air - Labs Labs: Laboratory Tests 08/10/22 22:42 Ethyl Alcohol 222.9 - Rads (name of study) CT head Radiology: Final report received, EMP read indepedently, See rad report Procedures - Laceration (location) Right forehead Length in cm: 1 Wound type: Linear, Superficial, Clean Neurovascular status: Sensory intact, Motor intact, Vascular intact Wound preparation: Hibiclens, Irrigated copiously NS, Wound explored, To the base Skin layer closure: Dermabond Other: Patient tolerated well, No complications, Neurovascular intact, Tetanus UTD PD MEDICAL DECISION MAKING - ED course Complexity details: reviewed results, re-evaluated patient, considered differential, d/w patient ED course: The patient's laceration was repaired with Dermabond. Her head CT was negative. The patient was not clinically intoxicated and actually was quite coherent. The police were here for another patient and did offer the patient a ride home, but she declined and stated she would prefer to walk. We have discussed wound care at home as well as the usual indications for return. We have also discussed the need for getting help with her drinking. Departure - Departure Disposition: 01 Home, Self Care Clinical Impression: Laceration Closed head injury Qualifiers: Encounter type: initial encounter Qualified Code(s): S09.90XA - Unspecified injury of head, initial encounter Alcohol intoxication Qualifiers: Complication of substance-induced condition: uncomplicated Qualified Code(s): F10.920 - Alcohol use, unspecified with intoxication, uncomplicated Condition: Stable Instructions: ED Laceration Facial Skin Glue Comments: The CT scan of your head looks good. You have a small cut on your right forehead that has been fixed with glue. At this point in time, you will need to go home and get some rest. It is very important that you consider getting help with your drinking. You may talk to your primary care physician about resources for this. Discharge Date/Time: 08/11/22 00:48
[2022-08-11 00:48] VITALS: BP 151/84
== END 2022-08-11 00:48 | disposition home or self-care (01) ==
LOC: ED 22:16
DX: S01.81XA Laceration without foreign body of other part of head, initial encounter (principal); S09.90XA Unspecified injury of head, initial encounter; F10.920 Alcohol use, unspecified with intoxication, uncomplicated
CPT/HCPCS: 12011; 36415; 80320; 99284

== ENCOUNTER 2022-10-29 18:57 | Emergency (ER) | payer MEDICAID ==
[2022-10-29 19:10] VITALS: BP 97/66
--- NOTE | 2022-10-29 19:35 | ED Physician Documentation ---
PD HPI UPPER EXT INJURY - Stated complaint Stated Complaint: L ARM PX - Chief complaint Chief Complaint: Trauma Ext - History obtained from History obtained from: Patient - Additonal information Additional information: She has a known nonunion of a left elbow fracture. She has not followed up. She states that she is worried about following up because she thinks the specialist might amputate her arm. She was using a backpack and has more pain than usual. She also has slow slurred speech and admits to alcohol environment tonight. 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 - Present Medications Home Medications: Ambulatory Orders Medication Instructions Recorded Confirmed Meloxicam [Mobic] 7.5 mg PO BID PRN #20 tablet 01/30/17 predniSONE [Prednisone] 40 mg PO DAILY #10 tablet 01/30/17 Clotrimazole 3 drops EACHEAR TID 5 Days #10 ml 09/04/20 Meloxicam [Mobic] 15 mg PO DAILY PRN #20 tablet 09/04/20 Ondansetron Odt [Zofran] 4 mg TL Q6H PRN #10 tablet 07/07/21 Oxycodone HCl/Acetaminophen 1 - 2 each PO Q6H PRN #20 tablet 07/07/21 [Percocet 5-325 mg Tablet] Oxycodone HCl/Acetaminophen 1 - 2 each PO Q6H PRN #10 tablet 07/29/21 [Percocet 5-325 mg Tablet] traMADol [Ultram] 50 - 100 mg PO Q4-6H PRN #12 tablet 03/18/22 traMADol [Ultram] 50 mg PO Q4-6H PRN #7 tablet 10/29/22 - Allergies Allergies/Adverse Reactions: Allergies Allergy/AdvReac Type Severity Reaction Status Date / Time codeine Allergy Itching Verified 08/10/22 22:28 Penicillins AdvReac Nausea Verified 08/10/22 22:28 - Social History Does the pt smoke?: No Smoking Status: Never smoker Does the pt drink ETOH?: No Does the pt have substance abuse?: No - Immunizations Immunizations are current?: Yes Immunizations: TDAP >10years/unknown - POLST Patient has POLST: No PD ED PE NORMAL - Vitals Vital signs reviewed: Yes - General General: Alert and oriented X 3, Other (Slow slurred speech with horizontal nystagmus consistent with alcohol intoxication.) - Extremities Extremities: Other (Left elbow is tender and she cannot range it. There is no warmth or redness. No sign of infection.) Results - Vitals Vitals: Vital Signs - 24 hr 10/29/22 10/29/22 10/29/22 19:06 19:13 19:28 Temperature 36.5 C Heart Rate 95 Respiratory 16 16 16 Rate Blood Pressure 97/66 O2 Saturation 95 Oxygen O2 Source Room air PD Medical Decision Making - ED course ED course: 57-year-old woman with known nonunion of a left elbow fracture has been lost to follow-up repeatedly potentially related to alcohol abuse and request pain management. Discussed with her that I would be willing to write a limited number of painkillers, but she absolutely needed to follow-up with orthopedics and she voiced understanding but she is mildly intoxicated and as such no pain medication was dispensed here. 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 We have and continue to recommend that you need to follow-up with an extracorporeal circulation specialist for this. You also have clinical signs of alcohol intoxication and therefore we have not dispensed any pain medication tonight. I did write a very limited prescription for tramadol which I sent to the [facility] pharmacy. You may not drink with it. Follow-up with an extracorporeal circulation specialist, without appropriate follow-up we do not anticipate any improvement in your chronic pain. Return for new or worsening symptoms. I am prescribing a short course of narcotic pain medication for you. These are potentially dangerous and addictive medications that should be used carefully. These medications may constipate you. Take an xnku-sdc-dimfteq stool softener (docusate) twice daily with plenty of water while taking these medications. If you go 24 hours without a bowel movement, take [id number] miralax, per package instructions. Do not drink or drive while taking these medications. If you received narcotic or sedating medications while in the emergency department, do not drive for 24 hours. Store this medication in a safe, secure place and out of reach of children. It is a violation of federal law to give or sell this medication to another person or to use in a manner other than prescribed. The ED will not refill narcotic prescriptions, including prescriptions lost or stolen. To dispose of unwanted medications: 1. [facility] at [address] in [place] has a medication drop box. They accept prescription medications (in pill form) Wednesday through Wednesday 9:00 a.m. to 5:00 p.m. 2. The [facility] accepts prescription medications (in pill form only) for disposal year round. Call for more information. 3. Contact the [facility] for the next [facility] sponsored prescription drug collection event. , [phone], or [phone]; Note that many narcotic pain relievers also contain Tylenol/acetaminophen. Please ensure that your total dose of acetaminophen from all sources does not exceed 3 g (3000 mg) per day.
== END 2022-10-29 19:42 | disposition home or self-care (01) ==
LOC: ED 18:57
DX: S42.402K Unspecified fracture of lower end of left humerus, subsequent encounter for fracture with nonunion (principal); X58.XXXD Exposure to other specified factors, subsequent encounter; F10.129 Alcohol abuse with intoxication, unspecified
CPT/HCPCS: 99283; 99284

== ENCOUNTER 2022-11-20 23:11 | Outpatient (CLI) | payer MEDICAID | END 2022-11-20 23:59 | disposition critical access hospital (66) | LOC: EMS 23:11 | DX: S09.90XA Unspecified injury of head, initial encounter (principal); R41.82 Altered mental status, unspecified; S00.81XA Abrasion of other part of head, initial encounter; R11.10 Vomiting, unspecified; X58.XXXA Exposure to other specified factors, initial encounter; Y92.414 Local residential or business street as the place of occurrence of the external cause; Z72.89 Other problems related to lifestyle ==

== ENCOUNTER 2022-11-20 23:16 | Emergency (ER) | payer MEDICAID ==
[2022-11-20] MEDS ORDERED: iohexoL-300 100 ML VIAL ONE (23:33)
[2022-11-20 23:35] LABS: BASOPHILS % (AUTO) 0.6 %; EOSINOPHILS # (AUTO) 0.1 10^3/uL (0.0-0.7); EOSINOPHILS % (AUTO) 0.9 %; HCT - HEMATOCRIT 36.2 % (37.0-47.0); HGB - HEMOGLOBIN 11.5 g/dL (12.0-16.0); LYMPHOCYTES # (AUTO) 4.1 10^3/uL (1.5-3.5); LYMPHOCYTES % (AUTO) 57.7 %; MEAN CORPUSCULAR HEMOGLOBIN 27.8 pg (27.0-31.0); MEAN CORPUSCULAR HGB CONC 31.8 g/dL (32.0-36.0); MEAN CORPUSCULAR VOLUME 87.7 fL (81.0-99.0); MEAN PLATELET VOLUME 9.5 fL (7.9-10.8); MONOCYTES # (AUTO) 0.4 10^3/uL (0.0-1.0); MONOCYTES % (AUTO) 5.1 %; NEUTROPHILS # (AUTO) 2.4 10^3/uL (1.5-6.6); NEUTROPHILS % (AUTO) 34.1 %; PLT - PLATELET COUNT 268 10^3/uL (130-450); RED BLOOD COUNT 4.13 10^6/uL (4.20-5.40); WHITE BLOOD COUNT 7.1 x10^3/uL (4.8-10.8)
[2022-11-20 23:43] LABS: ALBUMIN 4.2 g/dL (3.2-5.5); ALBUMIN/GLOBULIN RATIO 1.5 (1.0-2.2); BILIRUBIN,TOTAL 0.5 mg/dL (0.2-1.0); CALCIUM 8.2 mg/dL (8.5-10.3); CREATININE 1.3 mg/dL (0.4-1.0); ETOH - ETHANOL 248.5 mg/dL; POTASSIUM 3.7 mmol/L (3.5-5.0)
[2022-11-20 23:55] LABS: INR 1.2 (0.8-1.2); PT - PROTHROMBIN TIME 13.8 secs (9.9-12.6)
[2022-11-21] MEDS ORDERED: iohexoL-300 100 ML VIAL IVP ONE (00:31)
[2022-11-21 00:35] LABS: MUDS CUTOFF CONCENTRATIONS CUTOFF CONC BELOW:
[2022-11-21 00:37] LABS: BILIRUBIN,URINE NEGATIVE (NEGATIVE); GLUCOSE, URINE (UA) NEGATIVE (NEGATIVE); KETONES,URINE (UA) NEGATIVE (NEGATIVE); LEUKOCYTE ESTERASE, URINE NEGATIVE (NEGATIVE); NITRITE,URINE NEGATIVE (NEGATIVE); OCCULT BLOOD,URINE LARGE (NEGATIVE); PROTEIN,URINE NEGATIVE (NEGATIVE); UROBILINOGEN,URINE 0.2 (NORMAL) E.U./dL (NORMAL)
[2022-11-21 00:45] LABS: CLARITY,URINE CLEAR (CLEAR)
[2022-11-21 00:46] LABS: BACTERIA,URINE Rare /HPF (None Seen); SQUAMOUS EPITHELIAL CELL,UR FEW Squamous (<= Few); WBC,URINE 0-3 /HPF (0-5)
[2022-11-21 00:47] LABS: AMPHETAMINE SCREEN,URINE NEGATIVE (NEGATIVE); BARBITURATE SCREEN,UR NEGATIVE (NEGATIVE); BENZODIAZEPINES SCREEN, URINE NEGATIVE (NEGATIVE); COCAINE SCREEN URINE NEGATIVE (NEGATIVE); METHADONE SCREEN, URINE NEGATIVE (NEGATIVE); METHAMPHETAMINES SCREEN, URINE NEGATIVE (NEGATIVE); OPIATE SCREEN, URINE NEGATIVE (NEGATIVE); OXYCODONE SCREEN, URINE NEGATIVE (NEGATIVE); PROPOXYPHENE SCREEN, URINE NEGATIVE (NEGATIVE); THC CANNABINOID SCREEN, URINE NEGATIVE (NEGATIVE); TRICYCLIC ANTIDEPRESSANT,URINE NEGATIVE (NEGATIVE)
--- NOTE | 2022-11-21 00:50 | CT Report ---
PROCEDURE: ABDOMEN/PELVIS W INDICATIONS: Abdominal trauma, blunt CONTRAST: IV 100 ML OMNI AT 2.5 ML/SEC TECHNIQUE: After the administration of nonionic contrast, 5 mm thick sections acquired from the diaphragms to th e symphysis. 5 mm thick coronal and sagittal reformats were acquired. For radiation dose reduction, the following was used: automated exposure control, adjustment of mA and/or kV according to patient size. COMPARISON: None. FINDINGS: Image quality: Excellent. ABDOMEN: Lung bases: Lung bases are clear. Heart size is normal. Solid organs: Liver and spleen are normal in size and enhancement. A small rounded cyst is seen wit hin the right anterior hepatic segment. Gallbladder Biliary system is non dilated. Pancreas enhances normally. No adrenal nodules. Kidneys demonstrate normal size and enhancement, without hydronephro sis. Peritoneum and bowel: Bowel loops demonstrate normal wall thickness and caliber. No free fluid or a ir. Nodes and vessels: No retroperitoneal or mesenteric adenopathy by size criteria. Aorta and inferior vena cava are normal in size. Miscellaneous: No ventral hernias. PELVIS: Genitourinary: Bladder wall thickness is normal. Miscellaneous: No inguinal hernias or adenopathy. Bones: No suspicious bony lesions. No definite acute vertebral body compression fractures are found but there is slight superior endplate deviation. IMPRESSION: No definite acute traumatic injury is seen. There is, however, slight superior endplate inferior bowing at the L3 and L4 vertebral bodies. MR scanning allows accurate discrimination between old slight compression fracture versus new, if clinically indicated. Reviewed by: Aba Duckworth MD on 11/21/2022 12:49 AM PDT Approved by: Aba Duckworth MD on 11/21/2022 12:49 AM PDT Station ID: [id number]
--- NOTE | 2022-11-21 00:51 | CT Report ---
PROCEDURE: CERVICAL SPINE WO INDICATIONS: Neck trauma, midline tenderness TECHNIQUE: Noncontrast 3 mm thick sections acquired from the skull base to the T4 level. Sagittal and coronal r eformats were then constructed. For radiation dose reduction, the following was used: automated exp osure control, adjustment of mA and/or kV according to patient size. COMPARISON: None. FINDINGS: Image quality: Excellent. Bones: No fractures or dislocations. Visualized superior ribs are intact. Soft tissues: Prevertebral soft tissues are normal in thickness. No paravertebral hematomas. No ap ical pneumothoraces. IMPRESSION: Degenerative disc disease is present without traumatic subluxation over the middle and lower thirds o f the cervical spine. No cervical spine fracture is found. Reviewed by: Aba Duckworth MD on 11/21/2022 12:50 AM PDT Approved by: Aba Duckworth MD on 11/21/2022 12:50 AM PDT Station ID: [id number]
--- NOTE | 2022-11-21 00:54 | CT Report ---
PROCEDURE: CHEST W INDICATIONS: Chest trauma, blunt, high energy CONTRAST:IV 100 ML OMNI AT 2.5 ML/SEC TECHNIQUE: After the administration of intravenous contrast, 1 mm axial images were acquired from the pulmonary apices through the posterior costophrenic angles. Axial 5 mm soft tissue kernel reconstructions were performed as well as 8 mm axial MIP and coronal and sagittal 5 mm reformations. For radiation dose reduction, the following was used: automated exposure control, adjustment of mA and/or kV according to patient size. COMPARISON: None. FINDINGS: Image quality: Excellent. Lungs and pleura: No acute air space opacities other than mild linear atelectasis at each posterior lung base. No pleural effusions or pneumothorax. Central and peripheral airways are patent and norm al in caliber. Mediastinum: Heart size is normal. No pericardial effusion. No mediastinal or hilar adenopathy by size criteria. Thoracic aorta and central pulmonary arteries are normal in size. Esophagus is aysha l in caliber. No hiatal hernia. Bones and chest wall: No suspicious bony lesions. No vertebral body compression fractures. No axil chun or supraclavicular adenopathy by size criteria. The thyroid is normal in size and there are no incidental findings.. Abdomen: Visualized upper abdominal solid organs appear normal. Upper abdominal bowel loops are nor mal in caliber. IMPRESSION: No trauma found. Mild linear atelectasis each posterior lung bases is incidentally noted. CLINICAL RECOMMENDATION STATEMENTS: In patients <35 years with an ITN detected on CT, MRI, or extrathyroidal ultrasound, the Committee re commends further evaluation with dedicated thyroid ultrasound if the nodule is "e1 cm and has no susp icious imaging features, and if the patient has normal life expectancy. In patients "e35 years with an ITN detected on CT, MRI, or extrathyroidal ultrasound, the Committee r ecommends further evaluation with dedicated thyroid ultrasound if the nodule is "e1.5 cm and has no s uspicious imaging features, and if the patient has normal life expectancy. (ACR, 2014) Reviewed by: Aba Duckworth MD on 11/21/2022 12:53 AM PDT Approved by: Aba Duckworth MD on 11/21/2022 12:53 AM PDT Station ID: [id number]
--- NOTE | 2022-11-21 00:55 | CT Report ---
PROCEDURE: HEAD WO INDICATIONS: Head trauma, mod-severe TECHNIQUE: Noncontrast 4.5 mm thick angled axial sections acquired from the foramen magnum to the vertex. For r adiation dose reduction, the following was used: automated exposure control, adjustment of mA and/or kV according to patient size. COMPARISON: None. FINDINGS: Image quality: Excellent. CSF spaces: Basal cisterns are patent. No extra-axial fluid collections. Ventricles are normal in size and shape. Brain: No midline shift. No intracranial masses or hemorrhage. Haskins-white matter interface is norm al. Skull and face: Calvarium and visualized facial bones are intact, without suspicious lesions. Sinuses: Visualized sinuses and mastoids are clear. IMPRESSION: No trauma found. Reviewed by: Aba Duckworth MD on 11/21/2022 12:54 AM PDT Approved by: Aba Duckworth MD on 11/21/2022 12:54 AM PDT Station ID: [id number]
--- NOTE | 2022-11-21 00:57 | CT Report ---
PROCEDURE: MAXILLOFACIAL WO INDICATIONS: Facial trauma TECHNIQUE: Noncontrast 1.5 mm thick axial images acquired from the mandible through the frontal sinuses, with co harish and sagittal reformatting. For radiation dose reduction, the following was used: automated ex posure control, adjustment of mA and/or kV according to patient size. COMPARISON: None. FINDINGS: Image quality: Excellent. Bones and teeth: Orbital garcia are intact. Sinus garcia show no fracture or deformity. Nasal bones and septum are free of significant fracture but there is slight depression of the bilateral anterior nasal bones to the degree that a slight impaction fracture is suspected.. Visualized portions of the mandible demonstrate no fractures or subluxation. Zygomatic arches are intact. Pterygoid plates ar e intact. Visualized portions of the skull base and auditory canals are intact. Sinuses: Paranasal sinuses are aerated, without fluid levels, mucosal thickening, or mucoceles. Mas toid air cells are aerated. Soft tissues: No edema, masses, or fluid collections. No enlarged lymph nodes. No soft tissue lace rations or debris. Vascular: Visualized vascular structures appear normal in the absence of contrast. Bony vascular fo ramina and canals are intact. IMPRESSION: Suspect slight impaction fracture involving anterior margin of the nasal bones bilateral ly. Reviewed by: Aba Duckworth MD on 11/21/2022 12:56 AM PDT Approved by: Aba Duckworth MD on 11/21/2022 12:56 AM PDT Station ID: [id number]
[2022-11-21] MEDS ORDERED: SODIUM CHLORIDE 0.9% 1,000 ML IV STA ×2 (01:09→07:51)
--- NOTE | 2022-11-21 03:26 | ED Physician Documentation ---
History of Present Illness - Stated complaint Stated Complaint: AMS - Chief complaint Chief Complaint: Neuro - History obtained from History obtained from: EMS - Additonal information Additional information: Patient is a 57-year-old female presenting for evaluation after what appears to be a ground-level fall near the [place].Per the paramedics she is well-known to them for alcohol use and he saw her just a short time before this call intoxicated at the gas station while he was buying a drink.She has multiple abrasions to her face. She was placed into a cervical collar. It is unclear if she is on any blood thinners. Patient is not able to provide any meaningful history. Patient was last seen in our emergency department as several weeks ago for left elbow pain related to known nonunion of fracture for which she has failed to follow-up with orthopedic surgery. Review of Systems Unable to obtain: Intoxicated PD PAST MEDICAL HISTORY - Past Medical History Cardiovascular: None Respiratory: None Neuro: None Endocrine/Autoimmune: None GI: None MANAGER DRIVE: None : None HEENT: None Psych: None Musculoskeletal: None Derm: None - Past Surgical History Past Surgical History: Yes /MANAGER DRIVE: Oophrectomy - Present Medications Home Medications: Ambulatory Orders Medication Instructions Recorded Confirmed Meloxicam [Mobic] 7.5 mg PO BID PRN #20 tablet 01/30/17 predniSONE [Prednisone] 40 mg PO DAILY #10 tablet 01/30/17 Clotrimazole 3 drops EACHEAR TID 5 Days #10 ml 09/04/20 Meloxicam [Mobic] 15 mg PO DAILY PRN #20 tablet 09/04/20 Ondansetron Odt [Zofran] 4 mg TL Q6H PRN #10 tablet 07/07/21 Oxycodone HCl/Acetaminophen 1 - 2 each PO Q6H PRN #20 tablet 07/07/21 [Percocet 5-325 mg Tablet] Oxycodone HCl/Acetaminophen 1 - 2 each PO Q6H PRN #10 tablet 07/29/21 [Percocet 5-325 mg Tablet] traMADol [Ultram] 50 - 100 mg PO Q4-6H PRN #12 tablet 03/18/22 traMADol [Ultram] 50 mg PO Q4-6H PRN #7 tablet 10/29/22 - Allergies Allergies/Adverse Reactions: Allergies Allergy/AdvReac Type Severity Reaction Status Date / Time codeine Allergy Itching Verified 08/10/22 22:28 Penicillins AdvReac Nausea Verified 08/10/22 22:28 - Social History Does the pt smoke?: No Smoking Status: Never smoker Does the pt drink ETOH?: No Does the pt have substance abuse?: No - Immunizations Immunizations are current?: Yes Immunizations: TDAP >10years/unknown - POLST Patient has POLST: No PD ED PE NORMAL - General General: Other (Opens eyes to painful stimuli, Well-developed, well-nourished) - HEENT HEENT: PERRL, EOMI, Moist mucous membranes, Pharynx benign, Other (Abrasions to right face and nose) - Neck Neck: No: C-Spine cleared by NEXUS criteria (Intoxicated, cervical collar kept in place) - Cardiac Cardiac: RRR - Respiratory Respiratory: No respiratory distress, Clear bilaterally - Abdomen Abdomen: Soft, Non tender - Extremities Extremities: Other (Abrasions to left knee ; Swelling to right ankle; Deformity to left elbow, left hand contracture, Strong radial pulse in left extremity, refuses to attempt to move any part of left arm including hand.) - Neuro Neuro: No: Alert and oriented X 3, Normal speech (Slurred speech) Eye Opening: To Pain Motor: Withdraws to Pain Verbal: Inappropriate GCS Score: 9 Results - Vitals Vitals: Vital Signs - 24 hr 11/20/22 11/20/22 11/20/22 23:26 23:28 23:47 Temperature 35.3 C L Heart Rate 58 L 80 Respiratory 23 25 H Rate Blood Pressure 61/45 L 108/74 O2 Saturation 96 94 11/21/22 11/21/22 11/21/22 00:15 00:30 02:51 Temperature 35.6 C L Heart Rate 82 80 67 Respiratory 21 24 20 Rate Blood Pressure 155/79 H 155/79 H 121/86 H O2 Saturation 100 94 99 11/21/22 11/21/22 11/21/22 03:49 04:00 04:45 Temperature Heart Rate 79 70 65 Respiratory 19 20 20 Rate Blood Pressure 129/77 125/76 124/81 H O2 Saturation 95 95 95 11/21/22 11/21/22 11/21/22 05:48 06:52 07:09 Temperature Heart Rate 80 87 77 Respiratory 19 18 Rate Blood Pressure 137/93 H 146/95 H 156/93 H O2 Saturation 100 96 98 11/21/22 11/21/22 11/21/22 07:32 08:02 08:30 Temperature 37.3 C Heart Rate 84 80 75 Respiratory 18 18 17 Rate Blood Pressure 153/87 H 160/88 H 160/88 H O2 Saturation 96 97 96 11/21/22 09:00 Temperature Heart Rate 72 Respiratory 18 Rate Blood Pressure 168/95 H O2 Saturation 95 Oxygen O2 Source Room air - EKG (time done) 1236 EKG releavant findings:: EKG personally interpreted by author of this note. Relevant findings are: Rate 79, normal sinus rhythm, motion artifact affecting interpretation of the baseline Rate: Rate (enter#) (79) Rhythm: NSR Ischemia: No: ST elevation c/w ischemia Other comments: Other comments (Motion artifact) - Labs Labs: Laboratory Tests 11/20/22 11/20/22 11/20/22 00:28 23:24 23:24 WBC 7.1 RBC 4.13 L Hgb 11.5 L Hct 36.2 L MCV 87.7 MCH 27.8 MCHC 31.8 L RDW 14.0 Plt Count 268 MPV 9.5 Neut # (Auto) 2.4 Lymph # (Auto) 4.1 H [place] # (Auto) 0.4 Eos # (Auto) 0.1 Baso # (Auto) 0.0 Absolute Nucleated RBC 0.00 Nucleated RBC % 0.0 PT INR Sodium 134 L Potassium 3.7 Chloride 102 Carbon Dioxide 19 L Anion Gap 13.0 BUN 12 Creatinine 1.3 H Estimated GFR (MDRD) 42 L Glucose 149 H Calcium 8.2 L Total Bilirubin 0.5 AST 74 H ALT 36 Alkaline Phosphatase 45 Total Protein 7.0 Albumin 4.2 Globulin 2.8 Albumin/Globulin Ratio 1.5 Lipase 40 Urine Color YELLOW Urine Clarity CLEAR Urine pH 6.0 Ur Specific [place] 1.010 Urine Protein NEGATIVE Urine Glucose (UA) NEGATIVE Urine Ketones NEGATIVE Urine Occult Blood LARGE H Urine Nitrite NEGATIVE Urine Bilirubin NEGATIVE Urine Urobilinogen 0.2 (NORMAL) Ur Leukocyte Esterase NEGATIVE Urine RBC 6-10 H Urine WBC 0-3 Ur Squamous Epith Cells FEW Squamous Urine Bacteria Rare Ur Microscopic Review INDICATED Urine Culture Comments NOT INDICATED Urine Opiates Screen NEGATIVE Ur Oxycodone Screen NEGATIVE Urine Methadone Screen NEGATIVE Ur Propoxyphene Screen NEGATIVE Ur Barbiturates Screen NEGATIVE Ur Tricyclics Screen NEGATIVE Ur Phencyclidine Scrn NEGATIVE Ur Amphetamine Screen NEGATIVE U Methamphetamines Scrn NEGATIVE U Benzodiazepines Scrn NEGATIVE Urine Cocaine Screen NEGATIVE U Cannabinoids Screen NEGATIVE Ethyl Alcohol 248.5 Blood Type Blood Type Recheck Antibody Screen Antibody Identification RESHMA, IgG Specific RESHMA, Polyspecific RESHMA, C3d Specific 11/20/22 11/20/22 11/20/22 23:24 23:42 23:42 WBC RBC Hgb Hct MCV MCH MCHC RDW Plt Count MPV Neut # (Auto) Lymph # (Auto) [place] # (Auto) Eos # (Auto) Baso # (Auto) Absolute Nucleated RBC Nucleated RBC % PT 13.8 H INR 1.2 Sodium Potassium Chloride Carbon Dioxide Anion Gap BUN Creatinine Estimated GFR (MDRD) Glucose Calcium Total Bilirubin AST ALT Alkaline Phosphatase Total Protein Albumin Globulin Albumin/Globulin Ratio Lipase Urine Color Urine Clarity Urine pH Ur Specific [place] Urine Protein Urine Glucose (UA) Urine Ketones Urine Occult Blood Urine Nitrite Urine Bilirubin Urine Urobilinogen Ur Leukocyte Esterase Urine RBC Urine WBC Ur Squamous Epith Cells Urine Bacteria Ur Microscopic Review Urine Culture Comments Urine Opiates Screen Ur Oxycodone Screen Urine Methadone Screen Ur Propoxyphene Screen Ur Barbiturates Screen Ur Tricyclics Screen Ur Phencyclidine Scrn Ur Amphetamine Screen U Methamphetamines Scrn U Benzodiazepines Scrn Urine Cocaine Screen U Cannabinoids Screen Ethyl Alcohol Blood Type O POSITIVE Blood Type Recheck O POSITIVE Antibody Screen POSITIVE Antibody Identification Anti-K RESHMA, IgG Specific Not Reportable RESHMA, Polyspecific NEGATIVE RESHMA, C3d Specific Not Reportable 11/21/22 07:48 WBC RBC Hgb Hct MCV MCH MCHC RDW Plt Count MPV Neut # (Auto) Lymph # (Auto) [place] # (Auto) Eos # (Auto) Baso # (Auto) Absolute Nucleated RBC Nucleated RBC % PT INR Sodium Potassium Chloride Carbon Dioxide Anion Gap BUN Creatinine Estimated GFR (MDRD) Glucose Calcium Total Bilirubin AST ALT Alkaline Phosphatase Total Protein Albumin Globulin Albumin/Globulin Ratio Lipase Urine Color Urine Clarity Urine pH Ur Specific [place] Urine Protein Urine Glucose (UA) Urine Ketones Urine Occult Blood Urine Nitrite Urine Bilirubin Urine Urobilinogen Ur Leukocyte Esterase Urine RBC Urine WBC Ur Squamous Epith Cells Urine Bacteria Ur Microscopic Review Urine Culture Comments Urine Opiates Screen Ur Oxycodone Screen Urine Methadone Screen Ur Propoxyphene Screen Ur Barbiturates Screen Ur Tricyclics Screen Ur Phencyclidine Scrn Ur Amphetamine Screen U Methamphetamines Scrn U Benzodiazepines Scrn Urine Cocaine Screen U Cannabinoids Screen Ethyl Alcohol 84.8 Blood Type Blood Type Recheck Antibody Screen Antibody Identification RESHMA, IgG Specific RESHMA, Polyspecific RESHMA, C3d Specific PD Medical Decision Making - ED course Complexity details: reviewed old records, reviewed results, re-evaluated patient ED course: Patient is a 57-year-old female presenting for evaluation after an unwitnessed fall. She has signs of trauma to her body with multiple abrasions to her face. She is intoxicated and not able to provide any history. She arrived in a cervical collar. She had trauma scans of head, cervical spine, face, chest abdomen and pelvis.Images were reviewed by me and per radiology reads there are possible endplate deformities of L3 and L4. No C-spine injuries were noted. I did keep the cervical collar on until she was able to participate with an exam. When she arrived she was Minimally responsive but this did improve while she was in the emergency department and she was protecting her airway.When she was able to answer questions for reliability about where she was and the month and the year I Rechecked her cervical spine and she denied any pain on palpation so collar was removed.Labs were checked and noted for elevated EtOH level.As patient became more sober she reported having more pain to extremities. X-rays were obtained of Right ankle, left knee and left elbow. Patient has a known nonhealed fracture of left elbow and was also recently seen here in the emergency department related to pain for that injury. This occurred over a year ago and she left a splint on for several months which led to weakness and contractures of the extremity. She has a strong pulse in the extremity and normal sensation. She does have decreased motor which appears to be chronic in the extremity. She did not follow-up with [facility] as she was recommended to. On my interpretation of her elbow x-ray she has a significant fracture to the distal humerus. Her ankle x-ray also demonstrates a small fracture to the talus.Due to the complex appearance of her elbow fracture and a prior injury I did request to speak with orthopedic surgery at [facility]. Images were sent.Consult is pending at time of shift change and patient was signed out to oncoming provider. Departure - Departure Disposition: 02 Transfer Acute Care Hosp Clinical Impression: Multiple abrasions Alcohol intoxication Qualifiers: Complication of substance-induced condition: uncomplicated Qualified Code(s): F10.920 - Alcohol use, unspecified with intoxication, uncomplicated Elbow fracture, left Qualifiers: Encounter type: initial encounter Fracture type: closed Qualified Code(s): S42.402A - Unspecified fracture of lower end of left humerus, initial encounter for closed fracture Radial head dislocation Qualifiers: Encounter type: initial encounter Laterality: left Qualified Code(s): S53.005A - Unspecified dislocation of left radial head, initial encounter Avulsion fracture of talus Qualifiers: Encounter type: initial encounter Fracture type: closed Fracture alignment: nondisplaced Laterality: left Qualified Code(s): S92.155A - Nondisplaced avulsion fracture (chip fracture) of left talus, initial encounter for closed fracture Condition: Stable Instructions: ED Abrasion, ED Alcohol Intoxication Comments: [facility] [address] [place] [address] Main The [facility] offers a monitored and safe s etting for individuals withdrawing from alcohol and drugs, and counseling for individuals experiencing a mental health crisis. All services are provided in a 10-bed facility where intensive medical monitoring is required along with stabilization services. The goal of these services is to assess a clients mental health and substance use disorder related needs, and assist them in accessing the services they need to recover. Discharge Date/Time: 11/21/22 09:25
[2022-11-21] MEDS ORDERED: KETOROLAC 30 MG/ML VIAL IVP STA (07:23)
--- NOTE | 2022-11-21 08:05 | ED Physician Documentation ---
ED Addendum - Addendum Addendum: 11/21/22 08:05 Patient was signed out to me by my partner Dr. Garcia. Briefly this is a 57-year-old female who was found in a parking lot with decreased level of consciousness last night. She was intoxicated. She initially received a CT of the head which did not show any abnormalities. Maxillofacial CT showed a possible slight impaction fracture involving the anterior margin of the nasal bones bilaterally. CT of the cervical spine showed degenerative disc disease, but no cervical spine fracture. CT chest did not find any evidence of trauma. There is mild linear atelectasis in each posterior lung base, incidental. The CT abdomen and pelvis showed no definite acute traumatic injuries, there was a slight superior endplate inferior bowing at L3 and L4, recommend MRI as clinically indicated. As the patient's mental status improved in the emergency department, apparently she was complained of more pain in the right ankle, L knee and left humerus/elbow. The left knee x-ray shows anterior soft tissue swelling, adjacent to the patellar tendon, but no evidence of fracture or misplacement of the patella. The right ankle x-ray shows a dorsal talar neck avulsion consistent with probable injury of the dorsal talonavicular ligament. Possible small lateral calcaneal avulsion. The left humerus and left elbow x-rays show a comminuted, angulated, displaced fracture of the distal humerus with intra- articular extension at the elbow and dislocation of the radiohumeral joint. At the time of signout, Dr. Garcia had reached out to [facility] for possible transfer given the complexity of the elbow fracture/dislocation. I spoke with the transfer center who directed me to the emergency department where I spoke with Dr. Juan Manuel Rivas, who graciously excepted the patient in transfer. COBRA forms completed The patient was placed in a long-arm left posterior splint in the position of comfort. She does appear to be neurovascularly intact on the left arm. She can feel me touching her hand and distal arm. Her left hand is contractured, reportedly this is from a splint to that she did not take off for 6 months. Her radial pulses strong. Cap refill appears normal. The patient did have slurred speech earlier, but this appears to be improving as her alcohol level decreases. Her mouth is very dry and her speech is clear after ice chips. She was given IV fluids, dose of Toradol. No focal neurological deficits to suggest stroke. Patient does have abrasions over her face and swelling to the right side of the face. Results - Vitals Vitals: Vital Signs - 24 hr 11/20/22 11/20/22 11/20/22 23:26 23:28 23:47 Temperature 35.3 C L Heart Rate 58 L 80 Respiratory 23 25 H Rate Blood Pressure 61/45 L 108/74 O2 Saturation 96 94 11/21/22 11/21/22 11/21/22 00:15 00:30 02:51 Temperature 35.6 C L Heart Rate 82 80 67 Respiratory 21 24 20 Rate Blood Pressure 155/79 H 155/79 H 121/86 H O2 Saturation 100 94 99 11/21/22 11/21/22 11/21/22 03:49 04:00 04:45 Temperature Heart Rate 79 70 65 Respiratory 19 20 20 Rate Blood Pressure 129/77 125/76 124/81 H O2 Saturation 95 95 95 11/21/22 11/21/22 11/21/22 05:48 06:52 07:09 Temperature Heart Rate 80 87 77 Respiratory 19 18 Rate Blood Pressure 137/93 H 146/95 H 156/93 H O2 Saturation 100 96 98 11/21/22 11/21/22 07:32 08:02 Temperature Heart Rate 84 80 Respiratory 18 18 Rate Blood Pressure 153/87 H 160/88 H O2 Saturation 96 97 Oxygen O2 Source Room air - Labs Labs: Laboratory Tests 11/20/22 11/20/22 11/20/22 00:28 23:24 23:24 WBC 7.1 RBC 4.13 L Hgb 11.5 L Hct 36.2 L MCV 87.7 MCH 27.8 MCHC 31.8 L RDW 14.0 Plt Count 268 MPV 9.5 Neut # (Auto) 2.4 Lymph # (Auto) 4.1 H [place] # (Auto) 0.4 Eos # (Auto) 0.1 Baso # (Auto) 0.0 Absolute Nucleated RBC 0.00 Nucleated RBC % 0.0 PT INR Sodium 134 L Potassium 3.7 Chloride 102 Carbon Dioxide 19 L Anion Gap 13.0 BUN 12 Creatinine 1.3 H Estimated GFR (MDRD) 42 L Glucose 149 H Calcium 8.2 L Total Bilirubin 0.5 AST 74 H ALT 36 Alkaline Phosphatase 45 Total Protein 7.0 Albumin 4.2 Globulin 2.8 Albumin/Globulin Ratio 1.5 Lipase 40 Urine Color YELLOW Urine Clarity CLEAR Urine pH 6.0 Ur Specific [place] 1.010 Urine Protein NEGATIVE Urine Glucose (UA) NEGATIVE Urine Ketones NEGATIVE Urine Occult Blood LARGE H Urine Nitrite NEGATIVE Urine Bilirubin NEGATIVE Urine Urobilinogen 0.2 (NORMAL) Ur Leukocyte Esterase NEGATIVE Urine RBC 6-10 H Urine WBC 0-3 Ur Squamous Epith Cells FEW Squamous Urine Bacteria Rare Ur Microscopic Review INDICATED Urine Culture Comments NOT INDICATED Urine Opiates Screen NEGATIVE Ur Oxycodone Screen NEGATIVE Urine Methadone Screen NEGATIVE Ur Propoxyphene Screen NEGATIVE Ur Barbiturates Screen NEGATIVE Ur Tricyclics Screen NEGATIVE Ur Phencyclidine Scrn NEGATIVE Ur Amphetamine Screen NEGATIVE U Methamphetamines Scrn NEGATIVE U Benzodiazepines Scrn NEGATIVE Urine Cocaine Screen NEGATIVE U Cannabinoids Screen NEGATIVE Ethyl Alcohol 248.5 Blood Type Blood Type Recheck Antibody Screen Antibody Identification 11/20/22 11/20/22 11/20/22 23:24 23:42 23:42 WBC RBC Hgb Hct MCV MCH MCHC RDW Plt Count MPV Neut # (Auto) Lymph # (Auto) [place] # (Auto) Eos # (Auto) Baso # (Auto) Absolute Nucleated RBC Nucleated RBC % PT 13.8 H INR 1.2 Sodium Potassium Chloride Carbon Dioxide Anion Gap BUN Creatinine Estimated GFR (MDRD) Glucose Calcium Total Bilirubin AST ALT Alkaline Phosphatase Total Protein Albumin Globulin Albumin/Globulin Ratio Lipase Urine Color Urine Clarity Urine pH Ur Specific [place] Urine Protein Urine Glucose (UA) Urine Ketones Urine Occult Blood Urine Nitrite Urine Bilirubin Urine Urobilinogen Ur Leukocyte Esterase Urine RBC Urine WBC Ur Squamous Epith Cells Urine Bacteria Ur Microscopic Review Urine Culture Comments Urine Opiates Screen Ur Oxycodone Screen Urine Methadone Screen Ur Propoxyphene Screen Ur Barbiturates Screen Ur Tricyclics Screen Ur Phencyclidine Scrn Ur Amphetamine Screen U Methamphetamines Scrn U Benzodiazepines Scrn Urine Cocaine Screen U Cannabinoids Screen Ethyl Alcohol Blood Type O POSITIVE Blood Type Recheck O POSITIVE Antibody Screen POSITIVE Antibody Identification Anti-K 11/21/22 07:48 WBC RBC Hgb Hct MCV MCH MCHC RDW Plt Count MPV Neut # (Auto) Lymph # (Auto) [place] # (Auto) Eos # (Auto) Baso # (Auto) Absolute Nucleated RBC Nucleated RBC % PT INR Sodium Potassium Chloride Carbon Dioxide Anion Gap BUN Creatinine Estimated GFR (MDRD) Glucose Calcium Total Bilirubin AST ALT Alkaline Phosphatase Total Protein Albumin Globulin Albumin/Globulin Ratio Lipase Urine Color Urine Clarity Urine pH Ur Specific [place] Urine Protein Urine Glucose (UA) Urine Ketones Urine Occult Blood Urine Nitrite Urine Bilirubin Urine Urobilinogen Ur Leukocyte Esterase Urine RBC Urine WBC Ur Squamous Epith Cells Urine Bacteria Ur Microscopic Review Urine Culture Comments Urine Opiates Screen Ur Oxycodone Screen Urine Methadone Screen Ur Propoxyphene Screen Ur Barbiturates Screen Ur Tricyclics Screen Ur Phencyclidine Scrn Ur Amphetamine Screen U Methamphetamines Scrn U Benzodiazepines Scrn Urine Cocaine Screen U Cannabinoids Screen Ethyl Alcohol 84.8 Blood Type Blood Type Recheck Antibody Screen Antibody Identification Departure - Departure Disposition: 02 Transfer Acute Care Hosp Clinical Impression: Multiple abrasions Alcohol intoxication Qualifiers: Complication of substance-induced condition: uncomplicated Qualified Code(s): F10.920 - Alcohol use, unspecified with intoxication, uncomplicated Elbow fracture, left Qualifiers: Encounter type: initial encounter Fracture type: closed Qualified Code(s): S42.402A - Unspecified fracture of lower end of left humerus, initial encounter for closed fracture Radial head dislocation Qualifiers: Encounter type: initial encounter Laterality: left Qualified Code(s): S53.005A - Unspecified dislocation of left radial head, initial encounter Avulsion fracture of talus Qualifiers: Encounter type: initial encounter Fracture type: closed Fracture alignment: nondisplaced Laterality: left Qualified Code(s): S92.155A - Nondisplaced avulsion fracture (chip fracture) of left talus, initial encounter for closed fracture Condition: Stable Instructions: ED Abrasion, ED Alcohol Intoxication Comments: [facility] [address] [place] [address] Main The [facility] offers a monitored and safe setting for individuals withdrawing from alcohol and drugs, and counseling for individuals experiencing a mental health crisis. All services are provided in a 10-bed facility where intensive medical monitoring is required along with stabilization services. The goal of these services is to assess a clients mental health and substance use disorder related needs, and assist them in accessing the services they need to recover.
--- NOTE | 2022-11-21 08:48 | XRAY Report ---
PROCEDURE: Elbow 3 View LT INDICATIONS: known fx with non union TECHNIQUE: 3 views of the elbow were acquired. COMPARISON: Humerus radiograph from same date FINDINGS: Bones: Distal colonic fracture the humerus with apex volar angulation and probable extension to the i ntra-articular joint line. Subluxation of the radial head. IMPRESSION: 1.Comminuted angulated ventricular fracture of the distal humerus. 2.Dislocation of the radiohumeral joint. Reviewed by: Juan Manuel Little MD on 11/21/2022 7:47 AM TINA Approved by: Juan Manuel Little MD on 11/21/2022 7:47 AM TINA Station ID: [id number]
--- NOTE | 2022-11-21 08:50 | XRAY Report ---
PROCEDURE: Humerus LT INDICATIONS: c/o pain TECHNIQUE: 3 views of the humerus were acquired. COMPARISON: Elbow radiograph from same date FINDINGS: Bones: Distal comminuted fracture the humerus with apex volar angulation and probable extension to th e intra-articular joint line. Subluxation of the radial head. Shoulder appears congruent. IMPRESSION: 1.Comminuted angulated ventricular fracture of the distal humerus. 2.Dislocation of the radiohumeral joint. Reviewed by: Juan Manuel Little MD on 11/21/2022 7:48 AM TINA Approved by: Juan Manuel Little MD on 11/21/2022 7:48 AM TINA Station ID: [id number]
--- NOTE | 2022-11-21 08:53 | XRAY Report ---
PROCEDURE: Knee 3 View LT INDICATIONS: fall TECHNIQUE: 3 views of the left knee(s) were acquired. COMPARISON: None. FINDINGS: Bones: No fractures or dislocations. No suspicious bony lesions. Soft tissues: No effusion. Soft tissue swelling along the patellar tendon, correlate for patellar te ndon bursitis. IMPRESSION: Soft tissue swelling along the patellar tendon, correlate for patellar tendon bursitis. Reviewed by: Juan Manuel Little MD on 11/21/2022 7:51 AM TINA Approved by: Juan Manuel Little MD on 11/21/2022 7:51 AM TINA Station ID: [id number]
--- NOTE | 2022-11-21 08:56 | XRAY Report ---
PROCEDURE: Ankle 3 View RT INDICATIONS: swelling TECHNIQUE: 4 views of the ankle were acquired. COMPARISON: None FINDINGS: Bones: Avulsion fraction of the talar dorsal beak with minimal displacement. Agree with possible shahzad ical irregularity of the lateral calcaneus. Accessory ossicles along the peroneal tendon. Soft tissues: Prominent soft tissue swelling of the midfoot.. IMPRESSION: 1. Dorsal talar fracture. 2. Questionable lateral calcaneal fracture. Reviewed by: Juan Manuel Little MD on 11/21/2022 7:55 AM TINA Approved by: Juan Manuel Little MD on 11/21/2022 7:55 AM TINA Station ID: [id number]
[2022-11-21 09:24] VITALS: BP 168/95
== END 2022-11-21 09:25 | disposition short-term general hospital (02) ==
LOC: ED 23:16
DX: S00.81XA Abrasion of other part of head, initial encounter (principal); S80.212A Abrasion, left knee, initial encounter; X58.XXXD Exposure to other specified factors, subsequent encounter; S53.005A Unspecified dislocation of left radial head, initial encounter; S42.402A Unspecified fracture of lower end of left humerus, initial encounter for closed fracture; S92.155A Nondisplaced avulsion fracture (chip fracture) of left talus, initial encounter for closed fracture; F10.129 Alcohol abuse with intoxication, unspecified; R41.82 Altered mental status, unspecified
CPT/HCPCS: 36415; 70450; 70486; 71260; 72125; 73060; 73080; 73562; 73610; 74177; 80053; 80306; 80320; 81001; 83690; 85025; 85610; 86850; 86870; 86880; 86900; 86901; 93005; 96374; 99285; Q9967; 81003; 87086

== ENCOUNTER 2022-11-21 09:26 | Outpatient (CLI) | payer MEDICAID | END 2022-11-21 09:27 | disposition short-term general hospital (02) | LOC: EMS 09:26 | PROVIDERS: ATTEND Emergency Medicine | DX: S42.402A Unspecified fracture of lower end of left humerus, initial encounter for closed fracture (principal); X58.XXXA Exposure to other specified factors, initial encounter | CPT/HCPCS: A0425; A0426 ==